=== PATIENT | male | born 1995 | race Caucasian/White ===

== ENCOUNTER 2023-10-06 00:55 | Emergency (ER) | payer OTHER, SELFPAY ==
--- NOTE | ~2023-10-06 | XR_ITS ---
EXAMINATION: XR chest 2V DATE: 10/06/2023 01:29 INDICATION: Chest injury. TECHNIQUE: Frontal and lateral views of the chest were obtained. COMPARISON: None. FINDINGS: There is no pneumonia, pleural effusion, or pneumothorax. The heart size is normal. IMPRESSION: 1. No acute cardiopulmonary disease. Reviewed, dictated and finalized at location A.
[2023-10-06 00:59] VITALS: BP 135/69; PULSE 88; RESP 20; TEMP 36.3; O2SAT 100
[2023-10-06 01:13] VITALS: BP 158/88; PULSE 70; PULSE 71; RESP 14; RESP 19; O2SAT 99
[2023-10-06 01:15] VITALS: PULSE 75; RESP 14; O2SAT 99
--- NOTE | 2023-10-06 01:16 | ECG_ITS ---
Test Date: 2023-10-06 01:30:00 Measurements Intervals [place] Rate: 62 P: 40 AK: 136 QRS: 7 QRSD: 96 T: 14 QT: 385 QTc: 393 Interpretive Statements SINUS RHYTHM No previous ECG available for comparison Electronically Signed On 10-07-2023 13:31:05 CDT by Amadeo Angeles M.D.
--- NOTE | 2023-10-06 01:29 | ED.FALL ---
HPI - Fall General Chief Complaint: Fall Stated Complaint: Fall 2 days ago, right chest pain Time Seen by Provider: 10/06/23 01:13 History of Present Illness HPI Narrative: patient fell about 2 days ago when he was on muscle relaxants and tripped in the shower and landed on toilet chest 1st, he did have some bruising to his chest, pain especially with deep breaths. Related Data Allergies Allergy/AdvReac Type Severity Reaction Status Date / Time No Known Allergies Allergy Verified 10/06/23 00:56 Review of Systems Review of Systems: All systems reviewed & are unremarkable except as noted in HPI and below Exam Narrative: EXAMINATION OF ORGAN SYSTEMS/BODY AREAS: Constitutional: Vital signs per nursing GENERAL:[No acute distress, non-toxic appearing.] HEAD: Normal with no signs of head trauma. EYES: EOMI, conjunctiva normal ENT: Hearing grossly intact LUNGS: Nonlabored breathing. clear to auscultation bilaterally HEART: [Regular rate and rhythm], some slight tenderness to palpation to the chest with bruising ABD: [Soft], [nontender to palpation] EXT: Normal range of motion SKIN: Bruising to anterior chest NEURO: [Alert and oriented x 3. No gross focal sensory or strength deficits.] PSYCH: Normal affect Course Vital Signs Vital signs: Vital Signs Temperature 97.3 F L 10/06/23 00:59 Pulse Rate 88 10/06/23 00:59 Respiratory Rate 20 10/06/23 00:59 Blood Pressure 135/69 10/06/23 00:59 Pulse Oximetry 100 10/06/23 00:59 Oxygen Delivery Room Air 10/06/23 00:59 Temperature 97.3 F L 10/06/23 00:59 Pulse Rate 71 10/06/23 01:13 Respiratory Rate 19 10/06/23 01:13 Blood Pressure 158/88 H 10/06/23 01:13 Pulse Oximetry 99 10/06/23 01:13 Oxygen Delivery Room Air 10/06/23 00:59 MDM - Fall MDM Narrative Medical decision making narrative: patient presenting here with chest trauma 2 days ago, he does have bruising to his chest and some tenderness, clear bilateral breath sounds, wanted make sure he didn't puncture lung. X-ray obtained, and on my independent interpretation no obvious rib fractures, no obvious pneumothorax. EKG interpreted by myself independently, shows sinus rhythm 62, HI 136, QRS 96, QTc nl, normal axis, no ST elevations or depressions, no signs of acute ischemia or pain. Patient given pain medication and I do feel stable for discharge with return precautions and follow-up instructions to PCP Discharge Plan Discharge Clinical Impression: Chest wall contusion Patient Disposition: Home, Self-Care Condition: Stable Instructions: Antibiotic Form, Contusion in Adults (ED) Additional Instructions: You can take pain medication and use ice for the next day or 2, you can return to the emergency room for any further issues. Follow-up/Referrals: PHYSICIAN NOT ON STAFF,NONSTAFF [Non-Staff] - Ramón Estrada MD [Physician] - 2 Days
[2023-10-06] MEDS: LIDOCAINE 5% PATCH 1 PATCH TRANSDERM (01:33)
[2023-10-06] MEDS: oxyCODONE/ACETAMINOPHEN (*CRX) 5-325 MG TABLET 1 TABLET PO (01:33)
== END 2023-10-06 01:45 | disposition home or self-care (01) ==
PROVIDERS: Emergency Provider Emergency Medicine
DX: S20.219A Contusion of unspecified front wall of thorax, initial encounter (principal); W18.2XXA Fall in (into) shower or empty bathtub, initial encounter
CPT/HCPCS: 71046; 93005; 99283; A9270

== ENCOUNTER 2023-12-24 03:39 | Emergency (ER) | payer OTHER, SELFPAY ==
--- NOTE | ~2023-12-24 | XR_ITS ---
Portable chest x-ray Comparison: 10/06/2023 Clinical History: Chest pain Findings: Lungs are clear, without focal consolidation or pleural effusion. Cardiomediastinal silho uette is stable. Bones and soft tissues are unremarkable. Impression: Normal chest. Reviewed, dictated and finalized at [facility]. Impression: Normal chest.
[2023-12-24 03:45] VITALS: BP 157/91; PULSE 77; RESP 14; TEMP 36.5; O2SAT 99
[2023-12-24 03:54] VITALS: BP 144/93; PULSE 92; RESP 23; TEMP 36.6; O2SAT 97
[2023-12-24 03:58] VITALS: RESP 12; O2SAT 96
--- NOTE | 2023-12-24 04:27 | ED.GENADULT ---
HPI - General Adult General Chief complaint: Recheck/Abnormal Lab/Rx Stated complaint: abusing my medication - taking too much Time Seen by Provider: 12/24/23 04:18 Source: patient and other ( Girlfriend) Mode of arrival: ambulatory Limitations: no limitations History of Present Illness HPI narrative: patient presents that he is abusing/ misusing his medications. He is prescribed 10 mg Adderall but notes that there are some days when he takes 50-60 mg. He has also been drinking more heavily than normal. He drinks daily. He previously drank liquor but he is changed to beer. He notes that he is trying to cut down. 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 Because this makes him more alert, he then has difficulty sleeping that is why he has been drinking more alcohol. He denies any intentional self-harm or suicidal ideation. patient and his girlfriend mention several times they are concerned that he has diabetes. This is b/c When he had surgery in August he had been told that he had high blood sugar. Today he states that he felt flushed and he vomited he was having chest pain described as a tightness and during this episode he couldn't see straight . In general, he has had bilateral leg pain in his thighs and, to a lesser degree, in his calves. Also has been having confusion. He has a history of anxiety attacks and thinks that some of his current symptoms are combination that as well as the medication. patient states that he does not take Adderall every day, mainly only when he works. He has also been having difficulty having a bowel movement, feeling like he needs to go but not going and then feeling unwell did constipation. When he does have a bowel movement, because it is larger or firmer, he then has pain while defecating. Patient believes he is trying to titrate uppers and downers to meet his activity demands. patient states he has been vomiting attempts to eat or drink. He is drinking daily trying to cut down. Police he is withdrawn before but without significant complications such as delirium tremens or seizure. Does not believe he is withdrawing now. 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 HEAD: Normocephalic, atraumatic. EYES: Non injected, non icteric ENT: Nares clear, no rhinorrhea or epistaxis. Tongue protrudes midline without deviation or fasciculation. NECK: Supple. CHEST: Speaking in full sentences. No respiratory distress. HEART: Regular rate and rhythm. . ABDOMEN: Soft, nondistended. EXTREMITIES: Normal range of motion. No lower extremity edema. Compartments in bilateral legs soft. No tenderness to palpation of calves or thighs. SKIN: Warm, dry, no rash. NEURO: No focal deficits. Alert and oriented x3. not tremulous. No abnormal movements appreciated. Speaks clearly without aphasia or dysarthria. Moves all extremities. PSYCH: Normal mood and affect. Appearance: Well kempt. Behavior: Calm, good eye contact, in no acute distress. Affect: pleasant. Mood is congruent with affect. Speech: Appropriate rate, quantity and volume. Thought process: Linear. Denies SI. does not appear to be responding to internal stimuli. Cognition: Normal. Insight: Good. Judgment: Poor. Course Vital Signs Vital signs: Vital Signs Temperature 97.7 F 12/24/23 03:45 Pulse Rate 77 12/24/23 03:45 Respiratory Rate 14 12/24/23 03:45 Blood Pressure 157/91 H 12/24/23 03:45 Pulse Oximetry 99 12/24/23 03:45 Temperature 98 F 12/24/23 05:24 Pulse Rate 77 12/24/23 05:24 Respiratory Rate 14 12/24/23 05:24 Blood Pressure 116/92 H 12/24/23 05:24 Pulse Oximetry 97 12/24/23 05:24 Medical Decision Making [facility] Narrative Medical decision making narrative: patient presents with concern that he is appropriately taking the Adderall that this prescribed to him. In addition he notes that he drinking alcohol heavily. He does the former because of shift work in which he has had longer shifts due to increased inventory. Because he is taking of his Adderall than prescribed, he has difficulty sleeping this reason he has been drinking more alcohol in attempt to help him sleep. In the emergency department he is afebrile with vital signs notable for hypertension. Patient is very concerned he has diabetes ; normal HA1C. Rest of workup generally unremarkable. Discussed sleep hygiene and stressed the importance of taking medications as prescribed and attempting to reduce/cease alcohol consumption. patient discharged stable condition. Unknown if he has a primary care physician so /contact information is provided for 1. Differential Diagnosis Differential Diagnosis: Inappropriate use/ abuse prescribed amphetamine medication, alcohol abuse, considered withdrawal, rhabdomyolysis, electrolyte abnormalities, hyperglycemia, hypoglycemia, symptomatic anemia; acute kidney injury/ insufficiency; liver injury/transaminitis; manic episode/ wallace/bipolar disorder Vital Signs Vital Signs: Vital Signs Temperature 97.7 F 12/24/23 03:45 Pulse Rate 77 12/24/23 03:45 Respiratory Rate 14 12/24/23 03:45 Blood Pressure 157/91 H 12/24/23 03:45 Pulse Oximetry 99 12/24/23 03:45 Temperature 98 F 12/24/23 05:24 Pulse Rate 77 12/24/23 05:24 Respiratory Rate 14 12/24/23 05:24 Blood Pressure 116/92 H 12/24/23 05:24 Pulse Oximetry 97 12/24/23 05:24 Lab Data Lab results reviewed: Yes I reviewed the patient's lab results. Lab results narrative: Trace ketonuria leukopenia with no prior for comparison 12/24/23 04:48 12/24/23 04:48 Labs: Lab Results 12/24/23 12/24/23 Range/Units 04:48 05:57 WBC 3.8 L (4.5-10.0) K/mm3 RBC 4.77 (4.6-6.20) M/mm3 Hgb 15.3 (14.0-18.0) g/dL Hct 43.8 (42.0-52.0) % MCV 91.8 (80-100) fl MCH 32.1 (26-34) pg MCHC 34.9 (32-36) g/dl RDW 12.3 (11.5-14.5) % Plt Count 212 (150-375) k/mm3 MPV 10.8 H (7.4-10.4) fl Immature Gran % (Auto) 0.3 (0-0.5) % Neut % (Auto) 54.7 (45.5-73.1) % Lymph % (Auto) 30.7 (18.3-44.2) % [place] % (Auto) 10.3 H (2.6-8.5) % Eos % (Auto) 3.2 (0-4.4) % Baso % (Auto) 0.8 (0.2-1.2) % Lymph # (Auto) 1.16 (0.9-3.2) K/mm3 [place] # (Auto) 0.4 (0.1-0.6) K/mm3 Eos # (Auto) 0.1 (0-0.3) K/mm3 Baso # (Auto) 0.0 (0.0-0.1) K/mm3 Abs Immat Gran (auto) 0.01 (0.00-0.031) K/mm3 Absolute Neuts (auto) 2.1 (1.3-6.7) K/mm3 Absolute Nucleated RBC 0.000 (0.0-0.012) K/mm3 Nucleated RBC % 0.0 (0.0-0.2) % Sodium 140 (137-145) mmol/L Potassium 4.3 (3.4-5.0) mmol/L Chloride 105 (98-107) mmol/L Carbon Dioxide 27 (22-30) mmol/L Anion Gap 8 (4-12) mmol/L BUN 9 (9-20) mg/dL Creatinine 0.80 (0.7-1.3) mg/dL Estim Creat Clear Calc 107 ml/min Estimated GFR > 60 (59 - ) Glucose 105 (65-110) mg/dL Hemoglobin A1c 5.2 (<5.7) % Calcium 8.9 (8.4-10.2) mg/dL Magnesium 2.2 (1.6-2.3) mg/dL Total Bilirubin 0.5 (0.2-1.3) mg/dL AST 36 (17-59) U/L ALT 28 (6-50) U/L Alkaline Phosphatase 58 (38-126) U/L Total Creatine Kinase 94 (55-170) U/L Total Protein 8.0 (6.3-8.2) g/dL Albumin 4.5 (3.5-5.1) g/dL Urine Color Yellow (Yellow) Urine Appearance Clear (Clear) Urine pH 7.5 (5.0-9.0) Ur Specific [place] 1.018 (1.001-1.035) Urine Protein Negative (Negative) mg/dL Urine Glucose (UA) Negative (Negative) mg/dL Urine Ketones Trace H (Negative) mg/dL Ur Blood (Man) Negative (Negative) Urine Nitrate Negative (Negative) Urine Bilirubin Negative (Negative) Urine Urobilinogen 1.0 (<2.0) mg/dL Leukocyte Esterase Rfl Negative (Negative) KAYLA/UL Ethyl Alcohol < 10 (<10) mg/dL Imaging Data Attestation: I personally reviewed and interpreted this imaging study as follows: My impression: Normal chest x-ray with no acute intrathoracic process per my independent interpretation ECG Data EKG #1: Attestation: I personally reviewed and interpreted this ECG as follows: ECG completion date: 12/24/23 ECG completion time: 04:55 Interpretation: normal sinus rhythm at a rate of 74 beats per minute. WI interval 136. QRS 92. QT/ QTC 362/389. Good R-wave progression across the precordial leads. T-wave inversion isolated to lead 3 but otherwise upright in normal in contiguous inferior leads 2 and AVF. No other T-wave inversions. Normal ECG. Discharge Plan Discharge Clinical Impression: Drug abuse, amphetamine type, Alcohol abuse, Chest pain not due to acute coronary syndrome, Leukopenia, Ketonuria, Leg pain, bilateral Patient Disposition: Home, Self-Care Condition: Stable Instructions: Antibiotic Form, Chest Pain (DC), Abuse of Alcohol (DC), At-Risk Alcohol Use (ED), Insomnia (ED), Leg Pain (ED), Alcohol Dependence (ED) Additional Instructions: Your labs were generally reassuring: no electrolyte abnormalities or evidence of exaggerated muscle breakdown in the tissues. You had a normal hemoglobin A1C which means you do not have diabetes. Taking more than your prescribed adderal is dangerous especially when combined with energy drinks as it could cause a problem with the electrical activity of your heart (though luckily fine today based on the chest xray and EKG). your symptoms are explained by the excessive use of your prescribed Adderall medication and abuse of alcohol. it is very important that you take your medication as prescribed and aim to reduce your alcohol consumption or trial stopping. follow-up with a primary care physician. If you do not have 1 the name of the doctor is listed below. Return to the emergency department with any new or worsening symptoms. Prescriptions: No Action lidocaine 5 % adhesive patch,medicated 1 patch topical DAILY Qty: 15 0RF Rx Instructions: leave on most painful area for up to 12 hrs Follow-up/Referrals: Oumar Dill MD [Physician] - ( Family practice) PHYSICIAN NOT ON STAFF,NONSTAFF [Primary Care Provider] - Stand Alone Forms: Work/School Release IP Time of Disposition: 06:33
--- NOTE | 2023-12-24 04:40 | ECG_ITS ---
Test Date: 2023-12-24 04:55:09 Measurements Intervals [place] Rate: 74 P: 56 HI: 136 QRS: -7 QRSD: 92 T: 1 QT: 362 QTc: 402 Interpretive Statements SINUS RHYTHM Compared to ECG 10/06/2023 01:30:00 No significant changes Electronically Signed On 12-24-2023 11:00:04 CDT by David Licea M.D.
[2023-12-24 04:55] LABS: Basophils Percent Auto 0.8 % (0.2-1.2); Eosinophils Absolute Auto 0.1 K/mm3 (0-0.3); Eosinophils Percent Auto 3.2 % (0-4.4); Hematocrit 43.8 % (42.0-52.0); Hemoglobin 15.3 g/dL (14.0-18.0); Immature Granulocyte Absolute 0.01 K/mm3 (0.00-0.031); Immature Granulocyte Percent A 0.3 % (0-0.5); Lymphocytes Absolute Auto 1.16 K/mm3 (0.9-3.2); Lymphocytes Percent Auto 30.7 % (18.3-44.2); Mean Corpuscular HGB Conc 34.9 g/dl (32-36); Mean Corpuscular Hemoglobin 32.1 pg (26-34); Mean Corpuscular Volume 91.8 fl (80-100); Mean Platelet Volume 10.8 fl (7.4-10.4); Monocytes Absolute Auto 0.4 K/mm3 (0.1-0.6); Monocytes Percent Auto 10.3 % (2.6-8.5); Neutrophils Absolute Auto 2.1 K/mm3 (1.3-6.7); Neutrophils Percent Auto 54.7 % (45.5-73.1); Platelet Count Result 212 k/mm3 (150-375); Red Blood Count 4.77 M/mm3 (4.6-6.20); Red Cell Distribution Width 12.3 % (11.5-14.5); White Blood Count 3.8 K/mm3 (4.5-10.0)
[2023-12-24 05:10] LABS: Hemoglobin A1C 5.2 % (<5.7)
[2023-12-24 05:13] LABS: Ethanol < 10 mg/dL (<10)
[2023-12-24 05:14] LABS: Alanine Aminotransferase 28 U/L (6-50); Albumin Level 4.5 g/dL (3.5-5.1); Alkaline Phosphatase 58 U/L (38-126); Anion Gap 8 mmol/L (4-12); Aspartate Amino Transferase 36 U/L (17-59); Bilirubin,Total 0.5 mg/dL (0.2-1.3); Blood Urea Nitrogen 9 mg/dL (9-20); Calcium 8.9 mg/dL (8.4-10.2); Carbon Dioxide 27 mmol/L (22-30); Chloride 105 mmol/L (98-107); Estimated CRCL calculation 107 ml/min; Estimated Glomerular Filt Rate > 60; Glucose 105 mg/dL (65-110); Magnesium 2.2 mg/dL (1.6-2.3); Potassium 4.3 mmol/L (3.4-5.0); Sodium 140 mmol/L (137-145)
[2023-12-24 05:24] VITALS: BP 116/92; PULSE 77; RESP 14; TEMP 36.6; O2SAT 97
[2023-12-24 05:28] LABS: Creatine Kinase 94 U/L (55-170)
[2023-12-24 06:08] LABS: Add Urine Microscopic? NO; Appearance Urine Clear (Clear); Bilirubin Urine Negative (Negative); Blood Urine Negative (Negative); Color Urine Yellow (Yellow); Glucose Urine UA Negative (Negative); Ketones Urine Trace mg/dL (Negative); Leukocyte Esterase Ur Negative LEU/UL (Negative); Nitrate Urine Negative (Negative); Protein Urine Negative (Negative); Specific Grav Ur 1.018 (1.001-1.035); pH Urine 7.5 (5.0-9.0)
== END 2023-12-24 06:44 | disposition home or self-care (01) ==
PROVIDERS: Emergency Provider Student in an Organized Health Care Education/Training Program
DX: F15.10 Other stimulant abuse, uncomplicated (principal); F10.10 Alcohol abuse, uncomplicated; R07.9 Chest pain, unspecified; D72.819 Decreased white blood cell count, unspecified; R82.4 Acetonuria; M79.662 Pain in left lower leg; M79.661 Pain in right lower leg
CPT/HCPCS: 36415; 71045; 80053; 81003; 82077; 82550; 83036; 83735; 85025; 93005; 99284

== ENCOUNTER 2024-11-12 08:43 | Emergency (ER) | payer OTHER, SELFPAY ==
--- NOTE | ~2024-11-12 | CT_ITS ---
Munir Hanna EXAMINATION: CT abdomen pelvis w con COMPARISON: None HISTORY: Bilateral lower abdomen pain TECHNIQUE: Axial images were obtained through the abdomen, pelvis post administration of IV contrast. Oral contrast was also administered. Coronal reconstruction images were obtained from the axial views. CT scan performed using dose optimization techniques including the following automated exposure control; adjustment of mA and/or kV; use of iterative reconstruction technique. Automatic exposure control was used to reduce radiation dose. Permanent radiation dose record is archived to PACS. FINDINGS: CT abdomen: LUNG BASES: The lung bases are clear. The visualized portions of the heart and pericardium are unremarkable. LIVER: Portal vein patent. No intrahepatic biliary duct dilatation. SPLEEN: Unremarkable. KIDNEYS: Right Kidney: Unremarkable. No calculi. No hydronephrosis. Left Kidney: Unremarkable. No calculi. No hydronephrosis ADRENAL GLANDS: Unremarkable. PANCREAS: Unremarkable. GALLBLADDER/BILIARY: Gallbladder contracted. STOMACH AND ESOPHAGUS: Visualized stomach and esophagus within normal limits. BOWEL/MESENTERY: Moderate fecal content, no colitis or diverticulitis. Appendix normal. Mesentery normal. No dilated small bowel loops. ADENOPATHY/RETROPERITONEUM: No lymphadenopathy. AORTA/VASCULATURE: Normal caliber aorta. FREE FLUID OR FREE AIR: No free fluid.. CT pelvis: SOLID ORGANS/REPRODUCTIVE: The prostate is enlarged, correlate with PSA. BLADDER: Within normal limits. OSSEOUS STRUCTURES: No acute osseous abnormality.No suspicious lesions. OVERLYING SOFT TISSUES: Unremarkable. IMPRESSION: 1. No acute intra-abdominal process Reviewed, dictated and finalized at location A.
--- OUTSIDE RECORDS SUMMARY | 2024-11-12 08:30 | XMS_ITS | Encounter Summary ---
Author Organization [facility] Healthcare Address [address] [place] [address] Care Team Providers Care Utilization Management Manager Name Role Phone Kyle Cole MD Primary Care Provider Reason for Visit * Reason Comments Diarrhea Vomiting, abdominal pain. Gas build up Encounter Details Date Type Department Care Team (Late st Contact Info) Description 11/12/2024 8:30 AM CDT Office Visit [facility] Medical [facility] Care at [address] [address] Wil Magaña, YOGESH [address] [facility] [address] [place] [address] Abdominal pain, vomiting, and diarrhea (Primary Dx); Generalized abdominal tenderness without rebound tenderness Social History Tobacco Use Types Packs/Day Years Used Date Smoking Tobacco: Some Days Cigarettes Vaping Smokeless Tobacco: Never Sex and Gender Information Value Date Recorded Sex Assigned at Not on file Legal Sex Male 10:08 PM CDT Gender Identity Not on file Sexual Orientation Not on file documented as of this encounter Last Filed Vital Signs Vital Sign Reading Time Taken Comments Blood Pressure 132/85 11/12/2024 8:15 AM CDT Pulse 75 11/12/2024 8:15 AM CDT Temperature 36.8 C (98.3 F) 11/12/2024 8:15 AM CDT Respiratory Rate 18 11/12/2024 8:15 AM CDT Oxygen Saturation 98% 11/12/2024 8:15 AM CDT Inhaled Oxygen Concentration - - Weight 71.7 kg (158 lb) 11/12/2024 8:15 AM CDT Height - - Body Mass Index 24.75 10/16/2024 10:07 AM CDT documented in this encounter Progress Notes * Wil Magaña NP - 11/12/2024 8:30 AM CDT Images from the original note were not included. Subjective/Objective Patient ID: Munir Hanna is a 28 y.o. male. This patient has verbally consented to recording this visit in order to utilize AI technology in generating this note. Chief Complaint Diarrhea (Vomiting, abdominal pain. Gas build up//) History of Present Illness Munir Hanna is a 28 year old male with a history of stomach issues who presents with abdominal pain,vomiting, and diarrhea. Patient here with today. He experiences worsening abdominal pain, vomiting, and diarrhea over the past couple of days. The abdominal pain feels like a 'gassy buildup' and worsens with bending over. Symptoms began on Sunday night, leading to missed work due to vomiting episodes. He has a history of stomach issues, including ulcers, but this episode is more severe. Diarrhea occurs more than ten times in 24 hours, without blood or mucus. He feels unusually hot despite a cool apartment but denies fever, chills, or sweats. He sleeps for extended periods with melatonin but wakes frequently to use the restroom. No urinary symptoms such as burning, urgency, or frequency. Increased urination is due to high fluid intake, including electrolyte drinks. No bruising or rash is noted, and he kept down a small granola bar this morning. Review of Systems All other systems reviewed and are negative. Physical Exam ABDOMEN: Tenderness on the right side of the abdomen. Physical Exam Vitals and nursing note reviewed. Constitutional: General: He is not in acute distress. Appearance: Normal appearance. He is not ill-appearing. Cardiovascular: Rate and Rhythm: Normal rate and regular rhythm. Pulmonary: Effort: Pulmonary effort is normal. Breath sounds: Normal breath sounds. Abdominal: General: Abdomen is flat. Bowel sounds are decreased. Palpations: Abdomen is soft. Tenderness: There is abdominal tenderness in the right upper quadrant, right lower quadrant, left upper quadrant and left lower quadrant. There is no guarding. Comments: Patient most tender on right upper and right lower quadrant Skin: General: Skin is warm and dry. Capillary Refill: Capillary refill takes less than 2 seconds. Findings: No bruising, erythema or rash. Neurological: Mental Status: He is alert and oriented to person, place, and time. Gait: Gait normal. Vitals: 11/12/24 0815 BP: 132/85 Pulse: 75 Resp: 18 Temp: 36.8 ??C (98.3 ??F) TempSrc: Continuous Temporal Temperature SpO2: 98% Weight: 71.7 kg (158 lb) No results found. No past medical history on file. Current Outpatient Medications: hydrOXYzine (VISTARIL) 25 mg capsule, Take 1-2 capsules (25-50 mg total) by mouth 3 (three) times aday as needed, Disp: , Rfl: valACYclovir (VALTREX) 500 mg tablet, Take 1 tablet (500 mg total) by mouth daily, Disp: , Rfl: azithromycin (ZITHROMAX) 250 mg tablet, Take 2 tablets the first day, then 1 tablet daily for 4 days (Patient not taking: Reported on 11/12/2024), Disp: 6 tablet, Rfl: 0 benzonatate (TESSALON) 200 mg capsule, Take 1 capsule (200 mg total) by mouth 3 (three) times a dayas needed for cough (Patient not taking: Reported on 11/12/2024), Disp: 42 capsule, Rfl: 0 dextroamphetamine-amphetamine (ADDERALL) 10 mg tablet, Take 1 tablet (10 mg total) by mouth daily (Patient not taking: Reported on 11/12/2024), Disp: , Rfl: fluticasone propionate (FLONASE) 50 mcg/actuation nasal spray, Administer 2 sprays into each nostril daily (Patient not taking: Reported on 11/12/2024), Disp: 1 each, Rfl: 0 ranitidine (ZANTAC) 150 mg capsule, Take 1 capsule (150 mg total) by mouth every evening (Patient not taking: Reported on 11/12/2024), Disp: 30 capsule, Rfl: 0 No Known Allergies Social History Tobacco Use Smoking status: Some Days Types: Cigarettes, Vaping Smokeless tobacco: Never Substance and Sexual Activity Drug use: Not on file Sexual activity: Not on file Alcohol Use: Not on file No past surgical history on file. Procedures Assessment/Plan 1. Abdominal pain, vomiting, and diarrhea (Primary) 2. Generalized abdominal tenderness without rebound tenderness Results Assessment & Plan Acute right lower quadrant abdominal pain with nausea, vomiting, and diarrhea; rule out acute abdominal infection (appendicitis, cholecystitis, or colitis) Differential includes appendicitis, cholecystitis, or colitis. Tenderness suggests possible acute abdominal infection requiring further evaluation. - Refer to emergency room for likely imaging and blood work to evaluate for acute abdominal infection. - Patient's to take him directly to emergency room for further evaluation Disposition Treatment plan including expectations, follow up, and return precautions discussed with patient/parent, verbalizes understanding. Medication dosage, use, and potential adverse reactions discussed with patient/parent. Advised to follow up with PCP if symptoms do not resolve as expected or sooner if condition worsens. Signs/symptoms warranting ER evaluation reviewed. Patient and/or guardian was given an opportunity to ask questions, questions answered. Wil Magaña NP This office note has been partially dictated using [employer] software, and as a result portions of the record may have been created with this software. Occasional wrong-word or '[id number]' substitutions may have occurred due to the inherent limitations of voice recognition software. Read the chartcarefully and recognize, using context, where substitutions have occurred. documented in this encounter Plan of Treatment Not on file documented as of this encounter Visit Diagnoses Diagnosis Abdominal pain, vomiting, and diarrhea- Primary Generalized abdominal tenderness without rebound tenderness documented in this encounter Care Teams Utilization Management Manager Relationship Specialty [place] [address] [facility] [place] [address] PCP - General 11/28/18 documented as of this encounter
--- OUTSIDE RECORDS SUMMARY | 2024-11-12 08:30 | XMS_ITS | Encounter Summary ---
Author Organization [facility] Healthcare Address [address] [place] [address] Care Team Providers Care Check Embosser Name Role Phone Kyle Cole MD Primary Care Provider Reason for Visit * Reason Comments Diarrhea Vomiting, abdominal pain. Gas build up Encounter Details Date Type Department Care Team (Late st Contact Info) Description 11/12/2024 8:30 AM CDT Office Visit [facility] Medical [facility] at [address] [address] Wil Magaña, YOGESH [address] [facility] [address] [place] [address] Abdominal pain, vomiting, and diarrhea [...] office note has been partially dictated using [employer] software, and as a result portions of the record may have been created with this software. Occasional wrong-word or '[id number]' substitutions may have occurred due to the inherent limitations of voice recognition software. Read the chartcarefully and recognize, using context, where substitutions have occurred. documented in this encounter Plan of Treatment Not on file documented as of this encounter Visit Diagnoses Diagnosis Abdominal pain, vomiting, and diarrhea- Primary Generalized abdominal tenderness without rebound tenderness documented in this encounter Care Teams Check Embosser Relationship Specialty [place] [id number] [address] [facility] [place] [address] PCP - General 11/28/18 documented as of this encounter
[2024-11-12 08:48] VITALS: BP 139/84; PULSE 74; RESP 18; TEMP 36.6; O2SAT 100
[2024-11-12 09:08] LABS: Hematocrit 48.3 % (42.0-52.0); Hemoglobin 16.2 g/dL (14.0-18.0); Immature Granulocyte Percent A 0.2 % (0-0.5); Lymphocytes Absolute Auto 1.49 K/mm3 (0.9-3.2); Mean Corpuscular HGB Conc 33.5 g/dl (32-36); Mean Corpuscular Hemoglobin 30.8 pg (26-34); Mean Corpuscular Volume 91.8 fl (80-100); Nucleated Red Blood Cells Absolute Auto 0.000 K/mm3 (0.0-0.012); Nucleated Red Blood Cells Perc 0.0 % (0.0-0.2); Platelet Count Result 232 k/mm3 (150-375); Red Blood Count 5.26 M/mm3 (4.6-6.20); White Blood Count 4.8 K/mm3 (4.5-10.0)
[2024-11-12 09:10] LABS: Add Urine Microscopic? NO; Appearance Urine Clear (Clear); Glucose Urine UA Negative (Negative); Leukocyte Esterase Ur Negative LEU/UL (Negative); Nitrate Urine Negative (Negative); Specific Grav Ur 1.021 (1.001-1.035)
--- NOTE | 2024-11-12 09:10 | ED_ITS ---
HPI - Abdominal Pain General Chief Complaint: Abdominal Pain Stated Complaint: abd pain Time Seen by Provider: 11/12/24 08:53 Source: patient Mode of arrival: ambulatory Limitations: no limitations History of Present Illness HPI narrative: Munir is a 28-year-old male patient presenting to the emergency room today with complaints of bilateral lower abdominal pain, nausea, vomiting, and diarrhea x3 days. He reports he felt feverish over the last few days. Rates his pain currently an 8/10-is sharp in nature. Worse with bending forward or raising up from a lying to a sitting position. Denies any blood in his stool. Last BM was diarrhea this morning. Also reports some discomfort when trying to initiate his urine stream-states it feels like it may be a little harder to void. Medical history of anxiety. Related Data Allergies Allergy/AdvReac Type Severity Reaction Status Date / Time No Known Allergies Allergy Verified 11/12/24 08:53 Review of Systems 2 Review of Systems: Pertinent positives per HPI. 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 There is no relevant family history pertinent to the patient complaint. Exam 2 Narrative: General: Well-developed, well nourished, in no apparent distress Head: Normocephalic, atraumatic Mouth: Oropharynx without lesions or masses, good dentition, MM dry. Cardio: Regular rate and rhythm, s1 and s2 normal, no murmur appreciated. Resp: Clear to auscultation bilaterally anteriorly and posteriorly, no rhonchi, rales, wheezing or rubs Abdomen: Soft, pliable, bowel sounds present in all quadrants, bilateral lower abdomen tender to palpation, negative obturator, negative psoas sign, negative rouvings, no organomegly, no CVAT tenderness. Course Course Emergency Course: Portions of this record may have been created with voice recognition software. Vital Signs Vital signs: Vital Signs Temperature 36.6 C 11/12/24 08:48 Pulse Rate 74 11/12/24 08:48 Respiratory Rate 18 11/12/24 08:48 Blood Pressure 139/84 11/12/24 08:48 Pulse Oximetry 100 11/12/24 08:48 Oxygen Delivery Room Air 11/12/24 08:48 Temperature 36.6 C 11/12/24 08:48 Pulse Rate 74 11/12/24 08:48 Respiratory Rate 18 11/12/24 08:48 Blood Pressure 139/84 11/12/24 08:48 Pulse Oximetry 100 11/12/24 08:48 Oxygen Delivery Room Air 11/12/24 08:48 Vital signs reviewed MDM - Abdominal Pain MDM Narrative Medical decision making narrative: At the time of visit patient is resting comfortably on the exam table. Patient appears to be nontoxic. Complaints of bilateral lower abdominal pain, nausea, vomiting, and diarrhea x3 days. He reports he felt feverish over the last few days. Rates his pain currently an 8/10-is sharp in nature. Worse with bending forward or raising up from a lying to a sitting position. Denies any blood in his stool. Last BM was diarrhea this morning. Also reports some discomfort when trying to initiate his urine stream-states it feels like it may be a little harder to void. Vital signs reviewed and stable to in the ER. Labs, CT abdomen pelvis with contrast, IV fluids, morphine, and Zofran were ordered. Labs: CBC, CMP, urinalysis are all unremarkable Diagnostics: CT abdomen/pelvis with contrast negative for any acute abdomen pathology. Medications: Morphine 2 mg IV, Zofran 4 mg IV, 1 L normal saline. Patient reports his pain has improved and he is feeling better Plan: Labs are unremarkable and his CT is negative for any acute abdomen pathology. I suspect patient likely has bilateral lower abdominal pain due to gastroenteritis. Prescription for Levsin and Zofran was sent to the pharmacy. Work note was given. Supportive measures were discussed with the patient and they voiced understanding discharge instructions and agrees to treatment plan. Return precautions reviewed Differential Diagnosis Differential diagnosis: Likely abdominal pain, acute appendicitis, constipation, diverticulitis, gastroenteritis, pancreatitis and other (Colitis) Lab Data 11/12/24 09:01 11/12/24 09:01 Labs: Lab Results 11/12/24 Range/Units 09:01 WBC 4.8 (4.5-10.0) K/mm3 RBC 5.26 (4.6-6.20) M/mm3 Hgb 16.2 (14.0-18.0) g/dL Hct 48.3 (42.0-52.0) % MCV 91.8 (80-100) fl MCH 30.8 (26-34) pg MCHC 33.5 (32-36) g/dl RDW 12.1 (11.5-14.5) % Plt Count 232 (150-375) k/mm3 MPV 10.8 H (7.4-10.4) fl Immature Gran % (Auto) 0.2 (0-0.5) % Neut % (Auto) 59.4 (45.5-73.1) % Lymph % (Auto) 31.0 (18.3-44.2) % [place] % (Auto) 6.7 (2.6-8.5) % Eos % (Auto) 1.7 (0-4.4) % Baso % (Auto) 1.0 (0.2-1.2) % Lymph # (Auto) 1.49 (0.9-3.2) K/mm3 [place] # (Auto) 0.3 (0.1-0.6) K/mm3 Eos # (Auto) 0.1 (0-0.3) K/mm3 Baso # (Auto) 0.1 (0.0-0.1) K/mm3 Abs Immat Gran (auto) 0.01 (0.00-0.031) K/mm3 Absolute Neuts (auto) 2.9 (1.3-6.7) K/mm3 Absolute Nucleated RBC 0.000 (0.0-0.012) K/mm3 Nucleated RBC % 0.0 (0.0-0.2) % Sodium 138 (137-145) mmol/L Potassium 3.9 (3.4-5.0) mmol/L Chloride 102 (98-107) mmol/L Carbon Dioxide 29 (22-30) mmol/L Anion Gap 7 (4-12) mmol/L BUN 12 (9-20) mg/dL Creatinine 0.94 (0.7-1.3) mg/dL Estim Creat Clear Calc 92 ml/min Estimated GFR > 60 (59 - ) Glucose 93 (65-110) mg/dL Calcium 9.6 (8.4-10.2) mg/dL Total Bilirubin 1.6 H (0.2-1.3) mg/dL AST 33 (17-59) U/L ALT 40 (6-50) U/L Alkaline Phosphatase 58 (38-126) U/L Total Protein 8.4 H (6.3-8.2) g/dL Albumin 4.9 (3.5-5.1) g/dL Urine Color Yellow (Yellow) Urine Appearance Clear (Clear) Urine pH 6.5 (5.0-9.0) Ur Specific [place] 1.021 (1.001-1.035) Urine Protein Negative (Negative) mg/dL Urine Glucose (UA) Negative (Negative) mg/dL Urine Ketones Negative (Negative) mg/dL Ur Blood (Man) Negative (Negative) Urine Nitrate Negative (Negative) Urine Bilirubin Negative (Negative) Urine Urobilinogen 1.0 (<2.0) mg/dL Leukocyte Esterase Rfl Negative (Negative) KAYLA/UL Imaging Data Radiologist's impression: ITS Impressions Abdomen/Pelvis CT 11/12/24 10:04 IMPRESSION: 1. No acute intra-abdominal process Discharge Plan Discharge Clinical Impression: Gastroenteritis, Abdominal pain, lower Patient Disposition: Home Condition: Stable Instructions: Antibiotic Form, Gastroenteritis (ED), Abdominal Pain (ED) Additional Instructions: Labs and urine normal in the ER CT abdomen normal in the ER today I suspect you have gastroenteritis/lower abdominal pain. Take medications as prescribed-ondansetron and Levsin BRAT diet for diarrhea Clear liquids x 24 hours then advance as tolerated for nausea/vomiting Return to the ED if you develop a worsening in your condition- high fever not controlled by Tylenol or Motrin, dehydration, weakness, lethargy, nausea/vomiting, abdominal pain, shortness of breath, or chest pain. Work note was given. Follow up with your PCP in 3-5 days if symptoms persist. Patient Language: Scottish Prescriptions: New hyoscyamine sulfate [Levsin] 0.125 mg tablet 0.125 mg PO QID PRN (Reason: dyspepsia) 3 Days Qty: 12 0RF ondansetron 4 mg tablet,disintegrating 4 mg PO Q6H PRN (Reason: nausea and vomiting) 3 Days Qty: 12 0RF No Action lidocaine 5 % adhesive patch,medicated 1 patch topical DAILY Qty: 15 0RF Rx Instructions: leave on most painful area for up to 12 hrs Follow-up/Referrals: PHYSICIAN NOT ON STAFF,NONSTAFF [Non-Staff] Stand Alone Forms: Work/School Release IP Time of Disposition: 10:36 Quality NIHSS Nursing Documentation ED NIHSS nursing documentation: reviewed/agree
--- OUTSIDE RECORDS SUMMARY | 2024-11-12 09:19 | XMS_ITS | Encounter Summary ---
Author Organization [facility] Address [address] [facility] Attn: [place] [address] Care Team Providers Care Inside Sales Advisor Name Role Phone Kyle Cole MD Primary Care Provider [phone] Encounter Details Date Type Department Care Team (Late st Contact Info) Description 1998 Outpatient Historical Lisha Scales MD [address] [place] [id number] Social History Tobacco Use Types Packs/Day Years Used Date Smoking Tobacco: Never Assessed Sex and Gender Information Value Date Recorded Sex Assigned at Not on file 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 Gender Identity Not on file Sexual Orientation Not on file documented as of this encounter Plan of Treatment Upcoming Encounters Date Type Department Care Team (Late st Contact Info) Description 11/28/2024 3:00 PM CDT Office Visit [facility] Primary [facility] [place] [id number] [place] [address] [place] [address] Velia Gray FNP [address] [place] [address] documented as of this encounter Visit Diagnoses Not on filedocumented in this encounter Care Teams Inside Sales Advisor Relationship Specialty [place] [address] [facility] [place] [phone] PCP - General Family Practice 07/07/15 documented as of this encounter
--- OUTSIDE RECORDS SUMMARY | 2024-11-12 09:19 | XMS_ITS | Encounter Summary ---
Author Organization [facility] Address [address] [place] [address] Care Team Providers Care Hot Man Name Role Phone Kyle Cole MD Primary Care Provider [phone] Encounter Details Date Type Department Care Team (Late st Contact Info) Description 04/09/2007 Outpatient Historical [facility] Irene Santana [facility] 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 Gender Identity Not on file Sexual Orientation Not on file documented as of this encounter Plan of Treatment Upcoming Encounters Date Type Department Care Team (Late Contact Info) Description 11/28/2024 3:00 PM CDT Office Visit [facility] Primary Care [address] [address] Velia Gray, ROD [id number] [place] [phone] documented as of this encounter Visit Diagnoses Not on filedocumented in this encounter Care Teams Hot Man Relationship Specialty [place] [address] [place] [phone] PCP - General Family Practice 07/07/15 documented as of this encounter
--- OUTSIDE RECORDS SUMMARY | 2024-11-12 09:19 | XMS_ITS | Encounter Summary ---
Author Organization [facility] Address [address] [facility] Attn: [place] [address] Care Team Providers Care [employer] Combination Teacher Name Role Phone Kyle Cole MD Primary Care Provider [phone] Encounter Details Date Type Department Care Team (Late st Contact Info) Description 05/15/2006 Outpatient Historical AttMarciano marshall MD [address] [address] Social History Tobacco Use Types Packs/Day Years Used Date Smoking Tobacco: Never Assessed Sex and Gender Information Value Date Recorded Sex Assigned at Not on file 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 Gender Identity Not on file Sexual Orientation Not on file documented as of this encounter Plan of Treatment Upcoming Encounters Date Type Department Care Team (Late st Contact Info) Description 11/28/2024 3:00 PM CDT Office Visit [facility] Primary Care [place] [id number] [place] [address] [place] [address] Velia Gray FNP [address] [facility] [address] documented as of this encounter Visit Diagnoses Not on filedocumented in this encounter Care Teams [employer] Combination Teacher Relationship Specialty [place] [address] [facility] [place] [phone] PCP - General Family Practice 07/07/15 documented as of this encounter
--- OUTSIDE RECORDS SUMMARY | 2024-11-12 09:19 | XMS_ITS | Clinical Summary ---
Author Organization [facility] Address [address] [place] [address] Care Team Providers Care Lance Crewmember Name Role Phone Kyle Verma MD Primary Care Provider Allergies No known active allergies Medications azithromycin (ZITHROMAX) 250 mg tablet Take 2 tablets the first day, then 1 tablet daily for 4 days 6 tablet 9 Active Additional Information Patient not taking.Reported on 11/12/2024 ranitidine (ZANTAC) 150 mg capsule Take 1 capsule (150 mg total) by mouth every evening 30 capsule 0 Active Additional Information Patient not taking.Reported on 11/12/2024 dextroamphetami ne-amphetamine (ADDERALL) 10 mg tablet Take 1 tablet (10 mg total) by mouth daily 2 Active hydrOXYzine (VISTARIL) 25 mg capsule Take 1-2 capsules (25-50 mg total) by mouth 3 (three) times a day as needed 2 Active valACYclovir (VALTREX) 500 mg tablet Take 1 tablet (500 mg total) by mouth daily Active benzonatate (TESSALON) 200 mg capsuleIndicati ons:Viral URI Take 1 capsule (200 mg total) by mouth 3 (three) times a day as needed for cough 42 capsule 4 Active Additional Information Patient not taking.Reported on 11/12/2024 fluticasone propionate (FLONASE) 50 mcg/actuation nasal sprayIndication s:Acute effusion of left ear Administer 2 sprays into each nostril daily 1 each 4 Active Additional Information Patient not taking.Reported on 11/12/2024 ofloxacin (FLOXIN) 0.3 % otic solutionIndicat ions:Acute suppurative otitis media of left ear with spontaneous rupture of tympanic membrane, recurrence not specified Administer 5 drops into the right ear 2 (two) times a day for 7 days 5 mL 5 10/24/19 25 amoxicillin (AMOXIL) 875 mg tabletIndicatio ns:Acute suppurative otitis media of left ear with spontaneous rupture of tympanic membrane, recurrence not specified Take 1 tablet (875 mg total) by mouth 2 (two) times a day for 10 days 20 tablet 5 10/27/19 25 Active Problems Problem Noted Date Diagnosed Date ADD (attention deficit disorder) 11/12/2024 Overview (11/12/2024): 07/07/2015 prev on adderall; abused? Didn't like how he felt on it. 03/05/2017 took adderall 10mg briefly fall 2016; holding off on refills.03/19/2019 defer any medications to Psychiatry 02/21/24: ABUSING ADDERALL / DR. VERMA's OFFICE NO LONGER FILLING> Cold sore 03/26/2024 Alcoholism 02/21/2024 Alcohol abuse 03/19/2019 Gastroesophageal reflux disease without esophagi tis 03/19/2019 Mood swings 03/19/2019 Herpes genitalis 06/03/2018 Vitamin B12 deficiency (non anemic) 02/04/2018 Chronic daily headache 02/01/2018 Acute low back pain without sciatica 03/05/2017 Anxiety 07/07/2015 Overview (11/12/2024): 04/02/2017 Stress/sleep, prn hydroxyzine. prozac to 40mg.Cocaine worsening. Rehab/psych 02/01/2018 on seroquel, hydroxyzine; from Psychiatry Dr. Piyush Muñoz MD. Sees Therapist Madyson Germain. 06/03/2018 Only on propranolol, has a new psychiatrist. 03/19/2019 hydroxyzine prn, ref Psychiatry Insomnia 07/07/2015 Moderate episode of recurrent major depressive d isorder 07/07/2015 Overview (11/12/2024): 07/07/2015 no active SI; start zoloft 50mg, f/u 1 mo (didn't). 11/18/15 - lexapro started. Stopped. effexor in fall 3 weeks, stopped. 03/05/2017 start prozac 20mg, prn hydroxyzine. Ref Psych also 04/02/2017 prozac inc to 40mg QD, ref Psych, rehab, addiction. +cocaine. 02/01/2018 on seroquel, hydroxyzine; from Psychiatry Dr. Piyush Muñoz MD. Sees Therapist Madyson Germain. 07/31/2018 stopped seeing therapist and psychiatrist. Stopped propranolol. Encounters Date Type Department Care Team Description 11/12/2024 8:30 AM CDT Office Visit [facility] at [address] [phone] Wil Magaña, YOGESH Abdominal pain, vomiting, and diarrhea (Primary Dx); Generalized abdominal tenderness without rebound tenderness 10/17/2024 Results Follow-Up [facility] at [place] [address] [address] [place] [phone] Sanjuana Rothman, YOGESH Throat culture Throat 10/17/2024 Telephone [facility] at [place] [address] [phone] Betsy Romo MA 10/16/2024 10:28 AM CDT - 10/16/2024 11:59 PM CDT Hospital Encounter [address] [address] Sore throat Discharge Disposition: Discharge to home or self care 10/16/2024 10:00 AM CDT Office Visit [facility] at [place] [address] [address] [place] [phone] Sanjuana Rothman, YOGESH Sore throat (Primary Dx); Cough, unspecified type; Acute suppurative otitis media of left ear with spontaneous rupture of tympanic membrane, recurrence not specified 08/16/2024 9:00 AM CDT Office Visit [facility] [place] [address] [place] [address] Rachana Baker NP Nausea vomiting and diarrhea (Primary Dx) from Last 3 Months Social History Tobacco Use Types Packs/Day Years Used Date Smoking Tobacco: Some Days Cigarettes Vaping Smokeless Tobacco: Never Sex and Gender Information Value Date Recorded Sex Assigned at Not on file Legal Sex Male 10:08 PM CDT Gender Identity Not on file Sexual Orientation Not on file Obstetrics History Last Filed Vital Signs Vital Sign Reading Time Taken Comments Blood Pressure 132/85 11/12/2024 8:15 AM CDT Pulse 75 11/12/2024 8:15 AM CDT Temperature 36.8 C (98.3 F) 11/12/2024 8:15 AM CDT Respiratory Rate 18 11/12/2024 8:15 AM CDT Oxygen Saturation 98% 11/12/2024 8:15 AM CDT Inhaled Oxygen Concentration - - Weight 71.7 kg (158 lb) 11/12/2024 8:15 AM CDT Height 170.2 cm (5' 7) 10/16/2024 10:07 AM CDT Body Mass Index 24.75 10/16/2024 10:07 AM CDT Plan of Treatment Health Maintenance Due Date Last Done Comments Depression Screening 1994 Hepatitis C Screening 1994 Varicella Vaccines (1 of 2 - 13+ 2-dose series) 11/20/2007 Regular Well Visit/Exam 18-64 2012 HPV Vaccines (3 - Male 3-dos e series) 08/13/2013 05/21/2013, 06/19/2012 Pneumococcal vaccine <65 (1 of 2 - PCV) 2013 DTaP/Tdap/Td Vaccine (7 - Td or Tdap) 05/22/2023 05/21/2013, 06/07/2006, 12/07/1999, Additional history exists Covid-19 Vaccine ( - 2024-2 6 season) 2024 05/16/2021, 07/06/2020, 06/04/2020 Influenza Vaccine (#1) 2024 , 01/30/2019, 03/05/2017, Additional history exists Hepatitis B Screening Completed 12/08/1996 , 05/28/1996, 03/06/1996 Procedures Procedure Name Priority Date/Time Associated Diagnosis Comments THROAT CULTURE Routine 10/16/2024 10:28 AM CDT Sore throat POC INFLUENZA A/B, COVID-19 ANTIGEN Routine 10/16/2024 10:23 AM CDT Cough, unspecified type POCT RAPID STREP Routine 10/16/2024 10:2 3 AM CDT Sore throat Cough, unspecified type from Last 3 Months Results * Throat culture Throat (10/16/2024 10:28 AM CDT) Report Final Report: No growth of pathogens. Comment:Testing performed by : [facility], [address] [place]., [address] Throat 10/16/2024 10:2 8 AM CDT 10/16/2024 4:12 PM CDT Narrative ZACHERY Bowie 10/17/2024 12:47 PM CDT Testing performed by [facility] ([phone]). Sanjuana Rothman NP LAB MICROBIOLOGY - GENERAL ORDERABLES Final Result [facility] [address] [address] Department [place] [address] * POC Influenza A/B, COVID-19 antigen (10/16/2024 10:23 AM CDT) Influenza A Ag, POC Negative Negative [facility] Influenza B Ag, POC Negative Negative [facility] COVID-19 Ag POC Presumptive Negative Presumptive Negative, Invalid [facility] Nasal 10/16/2024 10:2 3 AM CDT Sanjuana Rothman NP POINT OF CARE TEST ORDERABL ES Final Result [facility] [address] [place] [address], [facility] * POCT rapid strep A (10/16/2024 10:23 AM CDT) Rapid Strep A, POC Negative Negative Swab 10/16/2024 10:2 3 AM CDT Sanjuana Rothman NP POINT OF CARE TEST ORDERABL ES Final Result from Last 3 Months Insurance [facility] Care Teams Lance Crewmember Relationship Specialty [place] [address] [place] [address] PCP - General 11/28/18
--- OUTSIDE RECORDS SUMMARY | 2024-11-12 09:19 | XMS_ITS | Encounter Summary ---
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 Gender Identity Not on file Sexual Orientation Not on file documented as of this encounter Plan of Treatment Upcoming Encounters Date Type Department Care Team (Late st Contact Info) Description 11/28/2024 3:00 PM CDT Office Visit [facility] Primary Care [place] [address] [place] [address] [place] [address] Velia Gray FNP [address] [place] [address] documented as of this encounter Visit Diagnoses Not on filedocumented in this encounter Care Teams Bonus Clerk Relationship Specialty [place] [address] [facility] [place] [phone] PCP - General Family Practice 07/07/15 documented as of this encounter
--- OUTSIDE RECORDS SUMMARY | 2024-11-12 09:19 | XMS_ITS | Encounter Summary ---
Author Organization [facility] Address [address] [place] [address] Care Team Providers Care Elevator Repairer Name Role Phone Kyle Cole MD Primary Care Provider Encounter Details Date Type Department Care Team (Late st Contact Info) Description 10/17/2024 Results Follow-Up [facility] at [address] [place] [phone] Sanjuana Rothman, YOGESH [address] [facility] [place] [address] Throat culture Throat Social History Tobacco Use Types Packs/Day Years Used Date Smoking Tobacco: Some Days Cigarettes Vaping Smokeless Tobacco: Never Sex and Gender Information Value Date Recorded Sex Assigned at Not on file Legal Sex Male 10:08 PM CDT Gender Identity Not on file Sexual Orientation Not on file documented as of this encounter Miscellaneous Notes * Result Encounter Note - Lilian Nazario CMA - 10/18/2024 2:22 PM CDT Results and recommendation has been relayed to the patient. Lilian documented in this encounter Plan of Treatment Not on file documented as of this encounter Visit Diagnoses Not on filedocumented in this encounter Care Teams Elevator Repairer Relationship Specialty [place] [address] [place] [address] PCP - General 11/28/18 documented as of this encounter
--- OUTSIDE RECORDS SUMMARY | 2024-11-12 09:19 | XMS_ITS | Encounter Summary ---
Author Organization [facility] Address [address] [facility] Attn: [place] [address] Care Team Providers Care Worm Farm Laborer Name Role Phone Kyle Cole MD Primary Care Provider [phone] Encounter Details Date Type Department Care Team (Late st Contact Info) Description 03/31/1999 Outpatient Historical Lisha Scales MD [address] [place] [id number] Social History Tobacco Use Types Packs/Day Years Used Date Smoking Tobacco: Never Assessed Sex and Gender Information Value Date Recorded Sex Assigned at Not on file Legal Sex Male 3:28 AM SEE SUPERVISOR Gender Identity Not on file Sexual Orientation Not on file documented as of this encounter Plan of Treatment Upcoming Encounters Date Type Department Care Team (Late st Contact Info) Description 11/28/2024 3:00 PM CDT Office Visit [facility] Primary Care [place] [id number] [place] [address] [place] [address] Velia Gray FNP [address] [place] [address] documented as of this encounter Visit Diagnoses Not on filedocumented in this encounter Care Teams Worm Farm Laborer Relationship Specialty [place] [address] [facility] [place] [phone] PCP - General Family Practice 07/07/15 documented as of this encounter
--- OUTSIDE RECORDS SUMMARY | 2024-11-12 09:19 | XMS_ITS | Encounter Summary ---
Author Organization [facility] Address 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 Gender Identity Not on file Sexual Orientation Not on file documented as of this encounter Plan of Treatment Upcoming Encounters Date Type Department Care Team (Late st Contact Info) Description 11/28/2024 3:00 PM CDT Office Visit [facility] Primary Care [place] [id number] [place] [address] [place] [address] Velia Gray FNP [address] [facility] [address] documented as of this encounter Visit Diagnoses Diagnosis Unspecified hearing loss- Primary documented in this encounter Care Teams Putty Tinter Maker Relationship Specialty [place] [address] [facility] [place] [phone] PCP - General Family Practice 07/07/15 documented as of this encounter
--- OUTSIDE RECORDS SUMMARY | 2024-11-12 09:19 | XMS_ITS | Encounter Summary ---
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 Gender Identity Not on file Sexual Orientation Not on file documented as of this encounter Plan of Treatment Upcoming Encounters Date Type Department Care Team (Late st Contact Info) Description 11/28/2024 3:00 PM CDT Office Visit [facility] Primary Care [place] [id number] [place] [address] [place] [address] Velia Gray FNP [address] [facility] [place] [address] documented as of this encounter Visit Diagnoses Not on filedocumented in this encounter Care Teams Journey Lineman Relationship Specialty [place] [address] [facility] [place] [phone] PCP - General Family Practice 07/07/15 documented as of this encounter
--- OUTSIDE RECORDS SUMMARY | 2024-11-12 09:19 | XMS_ITS | Encounter Summary ---
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 [place] [place] [id number] documented as of this encounter Visit Diagnoses Not on filedocumented in this encounter Care Teams Gleason Operator Relationship Specialty [place] [address] [facility] [place] [phone] PCP - General Family Practice 07/07/15 documented as of this encounter
--- OUTSIDE RECORDS SUMMARY | 2024-11-12 09:19 | XMS_ITS | Encounter Summary ---
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 Gender Identity Not on file Sexual Orientation Not on file documented as of this encounter Plan of Treatment Upcoming Encounters Date Type Department Care Team (Late st Contact Info) Description 11/28/2024 3:00 PM CDT Office Visit [facility] Primary Care [place] [id number] [place] [address] [place] [address] Velia Gray FNP [address] [place] [address] documented as of this encounter Visit Diagnoses Not on filedocumented in this encounter Care Teams Leather Production Worker Relationship Specialty [place] [address] [facility] [place] [phone] PCP - General Family Practice 07/07/15 documented as of this encounter
--- OUTSIDE RECORDS SUMMARY | 2024-11-12 09:19 | XMS_ITS | Encounter Summary ---
Author Organization [facility] Address [address] [place] [address] Care Team Providers Care Gas Golf Cart Repairer Name Role Phone Kyle Cole MD Primary Care Provider [phone] Encounter Details Date Type Department Care Team (Late Contact Info) Description 01/21/2007 Outpatient Historical [facility] 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 [place] [phone] PCP - General Family Practice 07/07/15 documented as of this encounter
--- OUTSIDE RECORDS SUMMARY | 2024-11-12 09:19 | XMS_ITS | Encounter Summary ---
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 Gender Identity Not on file Sexual Orientation Not on file documented as of this encounter Plan of Treatment Upcoming Encounters Date Type Department Care Team (Late st Contact Info) Description 11/28/2024 3:00 PM CDT Office Visit [facility] Primary [place] [id number] [place] [address] [place] [address] Velia Gray FNP [address] [place] [address] documented as of this encounter Visit Diagnoses Not on filedocumented in this encounter Care Teams Mounter Clarinets Relationship Specialty [place] [address] [facility] [place] [phone] PCP - General Family Practice 07/07/15 documented as of this encounter
--- OUTSIDE RECORDS SUMMARY | 2024-11-12 09:19 | XMS_ITS | Encounter Summary ---
Author Organization [facility] Address [address] [place] [address] Care Team Providers Care Rail Car Driver Name Role Phone Kyle Cole MD Primary Care Provider Encounter Details Date Type Department Care Team (Late st Contact Info) Description 10/17/2024 Telephone [facility] [place] [address] [place] [phone] Betsy Romo MA Social History Tobacco Use Types Packs/Day Years Used Date Smoking Tobacco: Some Days Cigarettes Vaping Smokeless Tobacco: Never Sex and Gender Information Value Date Recorded Sex Assigned at Not on file Legal Sex Male 10:08 PM CDT Gender Identity Not on file Sexual Orientation Not on file documented as of this encounter Plan of Treatment Not on file documented as of this encounter Visit Diagnoses Not on filedocumented in this encounter Care Teams Rail Car Driver Relationship Specialty [place] [address] [place] [address] PCP - General 11/28/18 documented as of this encounter
--- OUTSIDE RECORDS SUMMARY | 2024-11-12 09:20 | XMS_ITS | Encounter Summary ---
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 Gender Identity Not on file Sexual Orientation Not on file documented as of this encounter Plan of Treatment Upcoming Encounters Date Type Department Care Team (Late st Contact Info) Description 11/28/2024 3:00 PM CDT Office Visit [facility] Primary Care [place] [phone] [place] [address] [place] [address] Velia Gray FNP [address] [place] [address] documented as of this encounter Visit Diagnoses Not on filedocumented in this encounter Care Teams Hydrometeorologist Relationship Specialty [place] [address] [facility] [place] [phone] PCP - General Family Practice 07/07/15 documented as of this encounter
--- OUTSIDE RECORDS SUMMARY | 2024-11-12 09:20 | XMS_ITS | Encounter Summary ---
Author Organization [facility] Address 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 Gender Identity Not on file Sexual Orientation Not on file documented as of this encounter Plan of Treatment Upcoming Encounters Date Type Department Care Team (Late st Contact Info) Description 11/28/2024 3:00 PM CDT Office Visit [facility] Primary Care [place] [phone] [place] [address] [place] [address] Velia Gray FNP [address] [facility] [address] documented as of this encounter Visit Diagnoses Diagnosis Perforation of tympanic membrane, unspecified- Primary documented in this encounter Care Teams Middle School Director Relationship Specialty [place] [address] [facility] [place] [phone] PCP - General Family Practice 07/07/15 documented as of this encounter
--- OUTSIDE RECORDS SUMMARY | 2024-11-12 09:20 | XMS_ITS | Encounter Summary ---
Author Organization [facility] Address [address] [place] [address] Care Team Providers Care Senior Policy Advisor Name Role Phone Kyle Cole MD Primary Care Provider [phone] Encounter Details Date Type Department Care Team (Late Contact Info) Description 04/09/2007 Outpatient Historical [facility] Irene Santana [facility] [address] [facility] 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 Gender Identity Not on file Sexual Orientation Not on file documented as of this encounter Plan of Treatment Upcoming Encounters Date Type Department Care Team (Late Contact Info) Description 11/28/2024 3:00 PM CDT Office Visit [facility] Primary Care [address] [address] Velia Gray FNP [phone] [place] [address] documented as of this encounter Visit Diagnoses Not on filedocumented in this encounter Care Teams Senior Policy Advisor Relationship Specialty [place] [address] [facility] [place] [phone] PCP - General Family Practice 07/07/15 documented as of this encounter
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
--- OUTSIDE RECORDS SUMMARY | 2024-11-12 09:20 | XMS_ITS | Encounter Summary ---
Author Organization [facility] Address [address] [facility] Attn: [place] [address] Care Team Providers Care Integration Architect Name Role Phone Kyle Cole MD Primary Care Provider [phone] Encounter Details Date Type Department Care Team (Late st Contact Info) Description 12/07/1999 Outpatient Historical Lisha Scales MD [address] [place] [id number] Social History Tobacco Use Types Packs/Day Years Used Date Smoking Tobacco: Never Assessed Sex and Gender Information Value Date Recorded Sex Assigned at Not on file Legal Sex Male 3:28 AM PANEL WIRER Gender Identity Not on file Sexual Orientation Not on file documented as of this encounter Plan of Treatment Upcoming Encounters Date Type Department Care Team (Late st Contact Info) Description 11/28/2024 3:00 PM CDT Office Visit [facility] [place] [id number] [place] [address] [place] [address] Velia Gray FNP [address] [place] [address] documented as of this encounter Visit Diagnoses Not on filedocumented in this encounter Care Teams Integration Architect Relationship Specialty [place] [address] [facility] [place] [address] PCP - General Family Practice 07/07/15 documented as of this encounter
--- OUTSIDE RECORDS SUMMARY | 2024-11-12 09:20 | XMS_ITS | Encounter Summary ---
Author Organization [facility] Address 5 [facility] Attn: [place] [address] Care Team Providers Care Hose Wrapper Name Role Phone Kyle Cole MD Primary Care Provider [phone] Encounter Details Date Type Department Care Team (Late st Contact Info) Description 03/16/2004 Outpatient Historical AttMarciano marshall MD [address] [address] Social History Tobacco Use Types Packs/Day Years Used Date Smoking Tobacco: Never Assessed Sex and Gender Information Value Date Recorded Sex Assigned at Not on file Legal Sex Male 3:28 AM SMOKED MEAT PREPARER Gender Identity Not on file Sexual Orientation Not on file documented as of this encounter Plan of Treatment Upcoming Encounters Date Type Department Care Team (Late st Contact Info) Description 11/28/2024 3:00 PM CDT Office Visit [facility] [place] [id number] [place] [address] [place] [address] Velia Gray FNP [address] [facility] [address] documented as of this encounter Visit Diagnoses Not on filedocumented in this encounter Care Teams Hose Wrapper Relationship Specialty [place] [address] [facility] [place] [phone] PCP - General Family Practice 07/07/15 documented as of this encounter
--- OUTSIDE RECORDS SUMMARY | 2024-11-12 09:20 | XMS_ITS | Encounter Summary ---
Author Organization [facility] Address 5 [facility] Attn: [place] [address] Care Team Providers Care Pastoral Ministries Professor Name Role Phone Kyle Cole MD Primary Care Provider [phone] Encounter Details Date Type Department Care Team (Late st Contact Info) Description 04/25/2004 Outpatient Historical AttMarciano marshall MD [address] [address] Social History Tobacco Use Types Packs/Day Years Used Date Smoking Tobacco: Never Assessed Sex and Gender Information Value Date Recorded Sex Assigned at Not on file Legal Sex Male 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 LEAD 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 Gender Identity Not on file Sexual Orientation Not on file documented as of this encounter Plan of Treatment Upcoming Encounters Date Type Department Care Team (Late st Contact Info) Description 11/28/2024 3:00 PM CDT Office Visit [facility] [place] [id number] [place] [address] [place] [address] Velia Gray FNP [address] [facility] [place] [address] documented as of this encounter Visit Diagnoses Not on filedocumented in this encounter Care Teams Pastoral Ministries Professor Relationship Specialty [place] [address] [facility] [place] [address] PCP - General Family Practice 07/07/15 documented as of this encounter
--- OUTSIDE RECORDS SUMMARY | 2024-11-12 09:20 | XMS_ITS | Encounter Summary ---
Author Organization [facility] Address 5 [facility] Attn: [place] [address] Care Team Providers Care Event Producer Name Role Phone Kyle Cole MD Primary Care Provider [phone] Encounter Details Date Type Department Care Team (Late st Contact Info) Description 09/24/2003 Outpatient Historical AttMarciano marshall MD [address] [address] Social History Tobacco Use Types Packs/Day Years Used Date Smoking Tobacco: Never Assessed Sex and Gender Information Value Date Recorded Sex Assigned at Not on file Legal 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 Male 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 Gender Identity Not on file Sexual Orientation Not on file documented as of this encounter Plan of Treatment Upcoming Encounters Date Type Department Care Team (Late st Contact Info) Description 11/28/2024 3:00 PM CDT Office Visit [facility] [place] [id number] [place] [address] [place] [address] Velia Gray FNP [address] [facility] [place] [address] documented as of this encounter Visit Diagnoses Not on filedocumented in this encounter Care Teams Event Producer Relationship Specialty [place] [address] [facility] [place] [phone] PCP - General Family Practice 07/07/15 documented as of this encounter
--- OUTSIDE RECORDS SUMMARY | 2024-11-12 09:20 | XMS_ITS | Encounter Summary ---
Author Organization [facility] Address 5 [facility] Attn: [place] [address] Care Team Providers Care Highway Painter Helper Name Role Phone Kyle Cole MD Primary Care Provider [phone] Encounter Details Date Type Department Care Team (Late st Contact Info) Description 05/30/2001 Outpatient Historical Lisha Sacles MD [address] [place] [phone] Social History Tobacco Use Types Packs/Day Years Used Date Smoking Tobacco: Never Assessed Sex and Gender Information Value Date Recorded Sex Assigned at Not on file Legal Sex Male 3:28 AM MH TEACHER Gender Identity Not on file Sexual Orientation Not on file documented as of this encounter Plan of Treatment Upcoming Encounters Date Type Department Care Team (Late st Contact Info) Description 11/28/2024 3:00 PM CDT Office Visit [facility] [place] [id number] [place] [address] [place] [address] Velia Gray FNP [address] [place] [address] documented as of this encounter Visit Diagnoses Not on filedocumented in this encounter Care Teams Highway Painter Helper Relationship Specialty [place] [address] [facility] [place] [address] PCP - General Family Practice 07/07/15 documented as of this encounter
--- OUTSIDE RECORDS SUMMARY | 2024-11-12 09:20 | XMS_ITS | Encounter Summary ---
Author Organization [facility] Address 5 [facility] Attn: [place] [address] Care Team Providers Care Registered Nurse First Assistant Name Role Phone Kyle Cole MD Primary Care Provider [phone] Encounter Details Date Type Department Care Team (Late st Contact Info) Description 08/04/1999 Outpatient Historical Lisha Scales MD [address] [place] [address] Social History Tobacco Use Types Packs/Day Years Used Date Smoking Tobacco: Never Assessed Sex and Gender Information Value Date Recorded Sex Assigned at Not on file Legal Sex Male 3:28 AM CARDIOGRAPHER Gender Identity Not on file Sexual Orientation Not on file documented as of this encounter Plan of Treatment Upcoming Encounters Date Type Department Care Team (Late st Contact Info) Description 11/28/2024 3:00 PM CDT Office Visit [facility] [place] [id number] [place] [address] [place] [address] Velia Gray FNP [address] [place] [address] documented as of this encounter Visit Diagnoses Not on filedocumented in this encounter Care Teams Registered Nurse First Assistant Relationship Specialty [place] [address] [facility] [place] [address] PCP - General Family Practice 07/07/15 documented as of this encounter
--- OUTSIDE RECORDS SUMMARY | 2024-11-12 09:20 | XMS_ITS | Encounter Summary ---
Author Organization [facility] Address [address] [place] [address] Care Team Providers Care Health Systems Analyst Name Role Phone Kyle Cole MD Primary Care Provider [phone] Encounter Details Date Type Department Care Team (Late st Contact Info) Description 06/06/2002 Outpatient Historical [facility] [address] [place] [address] Lisha Scales MD [address] [place] [address] Social History Tobacco Use Types Packs/Day Years Used Date Smoking Tobacco: Never Assessed Sex and Gender Information Value Date Recorded Sex Assigned at Not on file Legal Sex Male 3:28 AM MANAGER BUSINESS CONTINUITY Gender Identity Not on file Sexual Orientation Not on file documented as of this encounter Plan of Treatment Upcoming Encounters Date Type Department Care Team (Late st Contact Info) Description 11/28/2024 3:00 PM CDT Office Visit [facility] [place] [phone] [place] [address] Velia Gray FNP [address] [place] [address] documented as of this encounter Visit Diagnoses Not on filedocumented in this encounter Care Teams Health Systems Analyst Relationship Specialty [place] [address] [facility] [place] [phone] PCP - General Family Practice 07/07/15 documented as of this encounter
--- OUTSIDE RECORDS SUMMARY | 2024-11-12 09:20 | XMS_ITS | Encounter Summary ---
Author Organization [facility] Address [address] [facility] Attn: [place] [address] Care Team Providers Care Dental Lab Technician Name Role Phone Kyle Cole MD Primary Care Provider [phone] Encounter Details Date Type Department Care Team (Late st Contact Info) Description 12/27/2001 Outpatient Historical Lisha Scales MD [address] [place] [address] Social History Tobacco Use Types Packs/Day Years Used Date Smoking Tobacco: Never Assessed Sex and Gender Information Value Date Recorded Sex Assigned at Not on file Legal Sex Male 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 Gender Identity Not on file Sexual Orientation Not on file documented as of this encounter Plan of Treatment Upcoming Encounters Date Type Department Care Team (Late st Contact Info) Description 11/28/2024 3:00 PM CDT Office Visit [facility] [place] [phone] [place] [address] [place] [address] Velia Gray FNP [address] [facility] [address] documented as of this encounter Visit Diagnoses Not on filedocumented in this encounter Care Teams Dental Lab Technician Relationship Specialty [place] [address] [facility] [place] [address] PCP - General Family Practice 07/07/15 documented as of this encounter
--- OUTSIDE RECORDS SUMMARY | 2024-11-12 09:20 | XMS_ITS | Encounter Summary ---
Author Organization [facility] Address [address] [facility] Attn: [place] [address] Care Team Providers Care Supervisor Waterworks Name Role Phone Kyle Cole MD Primary Care Provider [phone] Encounter Details Date Type Department Care Team (Late st Contact Info) Description 12/07/1999 Outpatient Historical Lisha Scales MD [address] [place] [id number] Social History Tobacco Use Types Packs/Day Years Used Date Smoking Tobacco: Never Assessed Sex and Gender Information Value Date Recorded Sex Assigned at Not on file Legal Sex Male 3:28 AM SURFACER Gender Identity Not on file Sexual Orientation Not on file documented as of this encounter Plan of Treatment Upcoming Encounters Date Type Department Care Team (Late st Contact Info) Description 11/28/2024 3:00 PM CDT Office Visit [facility] Primary Care [place] [id number] [place] [address] [place] [address] Velia Gray FNP [address] [place] [address] documented as of this encounter Visit Diagnoses Not on filedocumented in this encounter Care Teams Supervisor Waterworks Relationship Specialty [place] [address] [address] [facility] [place] [phone] PCP - General Family Practice 07/07/15 documented as of this encounter
--- OUTSIDE RECORDS SUMMARY | 2024-11-12 09:20 | XMS_ITS | Encounter Summary ---
Author Organization [facility] Address 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 Primary Care [place] [id number] [place] [address] [place] [address] Velia Gray FNP [address] [place] [address] documented as of this encounter Visit Diagnoses Diagnosis Unspecified otitis media- Primary documented in this encounter Care Teams Domestic Cleaner Relationship Specialty [place] [address] [place] [phone] PCP - General Family Practice 07/07/15 documented as of this encounter
--- OUTSIDE RECORDS SUMMARY | 2024-11-12 09:20 | XMS_ITS | Clinical Summary ---
Author Organization [facility] Address [address] [place] [address] Phone Care Team Providers Care Doughnut Machine Operator Helper Name Role Phone Kyle Cole MD Primary Care Provider [phone] Oumar Parker PAC Unavailable [phone] Medications valACYclovir (VALTREX) 500 MG Tablet Take 500 mg by mouth daily as needed. Active ibuprofen (MOTRIN) 200 MG Tablet Take 200 mg by mouth every 8 hours as needed. Active amphetamine-dex troamphetamine (ADDERALL) 10 MG Tablet Take 10 mg by mouth. 2 Active hydrOXYzine (VISTARIL) 25 MG Capsule 2 Active esomeprazole (NexIUM) 20 MG CAPSULE DELAYED RELEASE Take 1 Capsule by mouth daily. 30 Capsule 3 Active Additional Information Patient taking differently:20 mg OralDAILY PRN, Reported on 09/05/2023 famotidine (PEPCID) 20 MG Tablet Take 1 Tablet by mouth daily. 30 Tablet 3 Active Additional Information Patient taking differently:20 mg OralDAILY PRN, Reported on 09/05/2023 HYDROcodone-evette taminophen (NORCO) 5-325 MG TabletIndicatio ns:Other closed intra-articular fracture of distal end of left radius, initial encounter Take 1 Tablet by mouth every 4 hours as needed for Severe pain. 30 Tablet 4 Active HYDROcodone-evette taminophen (NORCO) 5-325 MG TabletIndicatio ns:Closed Colles' fracture of left radius with routine healing, subsequent encounter Take 1-2 Tablets by mouth every 4 hours as needed for Moderate or more severe pain. 30 Tablet 4 Active naloxone HCl (Narcan) 4 MG/0.1ML Liquid 1 [place] by Nasal route as needed for Opioid Reversal. Administer in one nostril for symptoms of overdose (severe sleepiness, breathing problems, not responsive). Call 911. May repeat 1 spray in alternate nostril in 2-3 minutes if needed. 2 Each 4 Active Active Problems No known active problems Immunizations Immunization Administration Dates Next Due Covid-19, Mrna, Lnp-s, Pf, 3 0 Mcg/0.3 Ml Dose (Pfizer) 05/16/2021 Covid-19, Mrna, Lnp-s, Pf, 3 0 Mcg/0.3 Ml Dose, Wood-sucrose (conXt pang top) 06/15/2020 DTAP VACCINE 12/07/1999, 9,11/30/1997,05/28 Hepatitis A Vaccine 12/25/2005,10/11/2004 Hepatitis B Vaccine 12/08/1996,05/28/1996,1996 Hib Vaccine,unspecified Formulation 03/06/1996 Human Papillomavirus (HPV) 9 -valent Vaccine 01/29/2015 Human Papillomavirus Vaccine (HPV), quadrivalent 05/21/2013,06/19/2012 Inactivated Polio Vaccine 12/07/1999,04/23/1998, 11/30/1997 Influenza Vaccine, Quadrivalent, PF 11/26,01/30/2019,03/05/2017,01/29 MMR Vaccine 12/07/1999,11/30/1997 Meningococcal MCV4O 07/07/2009 TB Skin Test 02/14/1996 TDAP Vaccine 05/21/2013,06/07/2006 Family History Relation Name Status Comments Father Unknown Mother Unknown Social History Tobacco Use Types Packs/Day Years Used Date Smoking Tobacco: Never Smokeless Tobacco: Never Alcohol Use Standard Drinks/Week Comments Not Currently 0 (1 standard drink = 0.6 oz pur e alcohol) occasionally Sexually Active Control Partners Comments Yes Female Sex and Gender Information Value Date Recorded Sex Assigned at Male 09/02/2023 1:25 AM CDT Legal Sex Male 7:49 PM CDT Gender Identity Male 09/02/2023 1:25 AM CDT Sexual Orientation Not on file Last Filed Vital Signs Vital Sign Reading Time Taken Comments Blood Pressure 124/70 11/13/2023 10:46 AM CDT Pulse 100 11/13/2023 10:46 AM CDT Temperature 36.7 C (98 F) 09/06/2023 8:15 PM CDT Respiratory Rate 16 11/13/2023 10:46 AM CDT Oxygen Saturation 100% 11/13/2023 10:46 AM CDT Inhaled Oxygen Concentration - - Weight 68 kg (150 lb) 11/13/2023 10:46 AM CDT Height 170.2 cm (5' 7) 11/13/2023 10:46 AM CDT Body Mass Index 23.49 11/13/2023 10:46 AM CDT Plan of Treatment Health Maintenance Due Date Last Done Comments Hepatitis C Virus (HCV) Screening 1994 DTaP/Tdap/Td Immunization (7 - Td or Tdap) 05/22/2023 05/21/2013, 06/07/2006, 12/07/1999, Additional history exists Influenza Immunization (#1) 10/27/202411/26, 01/30/2019, 03/05/2017, Additional history exists SARS-COV-2 Immunization ( - season) 2024 05/16/2021, 06/15/2020 Respiratory Syncytial Virus (RSV) Immunization (Adult) (1 - 1-dose 75+ series) 2069 Hepatitis B Immunization Completed 997, 05/28/1996, 03/06/1996 Meningococcal Immunization (ACWY) Aged Out 07/07/2009 No longer eligible based on patient's age to complete this topic Human Papillomavirus (HPV) Immunization Completed 01/29/2015, 05/21/2013, 06/19/2012 Pneumococcal Immunization Combined Aged Out No longer eligible based on patient's age to complete this topic Rotavirus Immunization Aged Out No lo nger eligible based on patient's age to complete this topic Medical Devices Implanted Type Area Loom Changer Device Identifier Shelf Expiration Date Model / Serial / Lot Screw Bone 2.4mm 20mm Ss T8 Lock Chilo Solis Ns - [id number] Implanted:Qty: 1 on 09/06/2023 by Pola Santos DO at [facility] IMPLANT Left: Wrist SHELBIE GAMING 02.210.120 / 02.210.120 / 02.210.120 Screw Bone 2.4mm 18mm Ss T8 Lock Vangl Strdr Ns - [id number] Implanted:Qty: 1 on 09/06/2023 by Pola Santos DO at [facility] IMPLANT Left: Wrist SHELBIE GAMING 02.210.118 / 02.210.118 / 02.210.118 Screw Bone 2.7mm 16mm Lcp Ss T8 Cortex Strdr Slftp Ns Mdlr Mini Frag Sys - [id number] Implanted:Qty: 2 on 09/06/2023 by Pola Santos DO at [facility] IMPLANT Left: Wrist SHELBIE GAMING 202.876 / 202.876 / 202.876 2 Hole Left Plate Implanted:Qty: 1 on 09/06/2023 by Pola Santos DO at [facility] Left: Wrist 02.111.621 / 02.111.621 / 02.111.621 2.4 Va Locking Screw 22mm Implanted:Qty: 2 on 09/06/2023 by Pola Santos DO at [facility] Left: Wrist 02.210.122 / 02.210.122 / 02.210.122 Explanted Type Area Loom Changer Device Identifier Shelf Expiration Date Model / Serial / Lot 2.4 Cortex Screw 26mm Explanted:Qty: 1 on 09/06/2023 at [facility] Left: Wrist 201.776 / 201.776 / 201.776 Insurance [facility] Care Teams Doughnut Machine Operator Helper Relationship Specialty Start Date End Date Kyle Cole MD [address] [place] [address] PCP - General Emergency Medicine 12/15/18 Oumar Parker PAC [address] [place] [address] Physician Rx Specialist Physician Rx Specialist 09/05/23
--- OUTSIDE RECORDS SUMMARY | 2024-11-12 09:20 | XMS_ITS | Encounter Summary ---
Author Organization [facility] Address 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 DONOR RECRUITER Gender Identity Not on file Sexual Orientation Not on file documented as of this encounter Plan of Treatment Upcoming Encounters Date Type Department Care Team (Late Contact Info) Description 11/28/2024 3:00 PM CDT Office Visit [facility] Primary Care [place] [id number] [place] [address] [place] [address] Velia Gray FNP [address] [facility] [place] [address] documented as of this encounter Visit Diagnoses Diagnosis Unspecified otitis media- Primary documented in this encounter Care Teams Electronics Warfare Technician Relationship Specialty [place] [address] [place] [phone] PCP - General Family Practice 07/07/15 documented as of this encounter
--- OUTSIDE RECORDS SUMMARY | 2024-11-12 09:20 | XMS_ITS | Encounter Summary ---
Author Organization [facility] Address [address] [facility] Attn: [place] [address] Care Team Providers Care Fence Installer Name Role Phone Kyle Cole MD Primary Care Provider [phone] Encounter Details Date Type Department Care Team (Late st Contact Info) Description 12/22/2003 Outpatient Historical AttMarciano marshall MD [address] [address] Social History Tobacco Use Types Packs/Day Years Used Date Smoking Tobacco: Never Assessed Sex and Gender Information Value Date Recorded Sex Assigned at Not on file Legal Sex Male 3:28 AM CLINICAL DATA ASSOCIATE Gender Identity Not on file Sexual Orientation Not on file documented as of this encounter Plan of Treatment Upcoming Encounters Date Type Department Care Team (Late st Contact Info) Description 11/28/2024 3:00 PM CDT Office Visit [facility] Primary Care [place] [id number] [place] [address] [place] [address] Velia Gray FNP [address] [place] [address] documented as of this encounter Visit Diagnoses Not on filedocumented in this encounter Care Teams Fence Installer Relationship Specialty [place] [address] [address] [facility] [place] [phone] PCP - General Family Practice 07/07/15 documented as of this encounter
--- OUTSIDE RECORDS SUMMARY | 2024-11-12 09:20 | XMS_ITS | Clinical Summary ---
Author Organization [facility] Administrative Offices Address [address] [place] [address] Care Team Providers Care Office Receptionist Name Role Phone Kyle Verma MD Primary Care Provider [phone] Allergies No known active allergies Medications ibuprofen (MOTRIN) 200 mg tablet Take 200 mg by mouth Continuous as needed. Active esomeprazole (NexIUM) 20 mg Capsule, Delayed Release(E.C.) TAKE 1 CAPSULE BY MOUTH EVERY DAY 90 Capsule 1 3 Active Additional Information Patient not taking.Reported on 02/21/2024 famotidine (PEPCID) 20 mg tablet Take 1 Tablet (20 mg) by mouth daily. 90 Tablet 1 3 Active Additional Information Patient not taking.Reported on 02/21/2024 hydrOXYzine pamoate (VISTARIL) 25 mg capsuleIndicatio ns:Anxiety,Insom hector, unspecified type Take 1-2 Capsules (25-50 mg) by mouth 3 times daily as needed for Insomnia or Anxiety. 180 Capsule 5 4 Active lamoTRIgine (LaMICtal) 25 mg tabletIndication s:Mood swings Take 1 Tablet (25 mg) by mouth daily. 30 Tablet 1 4 Active naltrexone (DEPADE) 50 mg tabletIndication s:Alcoholism (CMS/HCC) TAKE 1 TABLET BY MOUTH EVERY DAY 30 Tablet 5 Active Active Problems Patient Care Coordination No te Formatting of this note migh t be different from the original. 02/01/2018 Therapist: Madyson Germain (prior) 06/03/2018 new psychiatrist - name (?) 02/21/24: ABUSING ADDERALL / DR. VERMA's OFFICE NO LONGER FILLING> Problem Noted Date Diagnosed Date Cold sore 03/26/2024 Alcoholism 02/21/2024 Assessment & Plan (02/21/2024 2:22 PM RN DIABETES EDUCATOR): Uncontrolled. PT will to start naltrexone, discussed AA, rehab. Discussed working on weaning off. Also was straight forward with pt and let him know likely his long standing untreated mental health disorders have been making it difficult to remain abstinent. He was agreeable to starting lamictal as well. Gastroesophageal reflux disease without esophagi tis 03/19/2019 Assessment & Plan (10/20/2020 5:05 PM CDT): Uncontrolled. Sending in Rx for PPI, discussed BID x 2 weeks, then wean down to daily. Detailed discussion regarding diet. If no improvement to have him see GI and/or check EGD. Assessment & Plan (03/19/2019 2:26 PM RN DIABETES EDUCATOR): Suboptimal control. Start PPI, GERD diet encouraged, discussed. Alcohol abuse 03/19/2019 Assessment & Plan (12/07/2021 5:34 PM CDT): Improving. Sober x 1 month, along w/ dad and girlfriend. Seeing therapy/court mandated, encouraged maintenance. Assessment & Plan (10/21/2021 5:04 PM CDT): Suboptimal control. Some improvement, maximum of 5 drinks per week. His girlfriend holds his ID so that he can get more when he go out. No longer drinking hard alcohol. Still considering rehab. Gave list in AVS. Encouraged limits and cessation. Assessment & Plan (03/19/2019 2:29 PM RN DIABETES EDUCATOR): Uncontrolled. Was drinking 1/5 liquor/day. ER visit 02/26/2019. Encouraged complete cessation, he says has cut down;ref to Psychiatry. Mood swings 03/19/2019 Assessment & Plan (03/19/2019 2:26 PM RN DIABETES EDUCATOR): Suboptimal control. Long discussion - no active SI, emphasized importance of seeing psychiatry due to mood swings, concerns bipolar, alcohol abuse, ADD, anxiety. Referral Psychiatry ordered again. Hydroxyzine helps anxiety, continue To see Psychiatry. Has hotlines / resources in AVS, CRS #. Herpes genitalis 06/03/2018 Assessment & Plan (10/20/2020 5:06 PM CDT): Stable. Restart valtrex per pt request Assessment & Plan (03/19/2019 2:28 PM RN DIABETES EDUCATOR): Stable. Refilled meds Assessment & Plan (01/30/2019 1:07 PM RN DIABETES EDUCATOR): Stable and Controlled. Current medication regimen affective, continue same. Assessment & Plan (07/31/2018 5:09 PM CDT): Stable. Current medication regimen affective, continue same. Refill sent to pharmacy. Assessment & Plan (06/03/2018 2:53 PM CDT): Acute. New dx, girlfriend also w/ confirmed dx and on medication. Start valtrex 1 g BID x 10 days, also gave Rx for any recurrent outbreaks 500mg BID x 3 days per outbreak. Vitamin B12 deficiency (non anemic) 02/04/2018 Chronic daily headache 02/01/2018 Assessment & Plan (02/01/2018 2:02 PM RN DIABETES EDUCATOR): Suboptimal control. Daily, bilateral, can be severe. Symptom diary. Non-focal neuro exam. Check basic labs. Says nothing otc works, but not taking anything lately - discussed trial tylenol, etc. Sounds like tension type. Acute low back pain without sciatica 03/05/2017 Assessment & Plan (03/05/2017 11:51 AM RN DIABETES EDUCATOR): Suboptimal control. No red flags. Several weeks. Nsaids, gave back pain exercises. Moderate episode of recurrent major depressive d isorder 07/07/2015 Overview (07/31/2018): 07/07/2015 no active SI; start zoloft 50mg, [...] stopped seeing therapist and psychiatrist. Stopped propranolol. Assessment & Plan (02/21/2024 2:20 PM RN DIABETES EDUCATOR): Uncontrolled. Long discussion with pt and girlfriend, has been difficult to get him in with psychiatry and compliance has been a long standing issue. He is agreeable and willing to try a mood stabilizer. Sending in lamictal 25 mg daily. SE discussed. Pt to follow up for monitoring in 1 month. Encouraged counseling. Assessment & Plan (05/22/2023 12:19 PM CDT): Stable . Continue current treatment. Counseling discussed/encouraged. FMLA paperwork to be sent and we can update. Assessment & Plan (11/30/2022 4:18 PM CDT): Stable and Improving. Continue current treatment. Counseling discussed/encouraged. FMLA paperwork completed and faxed. Assessment & Plan (09/27/2022 5:18 PM CDT): Suboptimal control. Continue current treatment. From 09/15/22 - side effects w/ sertraline 50mg (took one dose, stopped); discussed to be on 1/2 tablet 25mg QD for a week then go up. Prn hydroxyzine. Time off FMLA really helped him in terms of stress, feels like better managed now. Needs work to return w/o restrictions. Looking into therapists in [place] still. No SI, if applicable discussed stress relief, sleep tips and/or see AVS. Every Word Counts - Depression (Sarah) Assessment & Plan (09/15/2022 11:10 AM CDT): Suboptimal control and Worsening. Continue current treatment. Start sertraline 50mg QD. Continue prn hydroxyzine. Looking into therapist in [place]. Taking 2 week FMLA leave 09/15/2022 to 09/29/2022. Pt agreeable to starting SSRI/SNRI or similar depression/anxiety medication. We discussed pros/cons/alternatives, black box warnings (including possible thoughts of hurting self, if applicable), common side effects, and typical 3-4 week delay before it starts to help symptoms. Pt understands and agrees to contact me or my office immediately if any significant problems, concerns or questions. No SI, if applicable discussed stress relief, sleep tips and/or see AVS. Every Word Counts - Depression (Sarah) Assessment & Plan (12/14/2021 4:47 PM CDT): Suboptimal control. Long discussion with pt, > 50% of visit was spent counseling. Discussed importance of routine counseling. Discussed benefit of daily preventative medication. Pt to follow up with PCP in 1 month after restarting Adderall. Will continue to address pt depression. Assessment & Plan (10/20/2020 5:06 PM CDT): Suboptimal control. Long discussion, offered restarting SSRI or SNRI, pt hesitant. Discussed restarting adderall and seeing if focus helps with anxiety. Pt to follow up in 1 month with PCP for monitoring. Consider treating mood if no improvement. All questions and concerns addressed this visit, pt agrees with plan of care. Assessment & Plan (03/19/2019 2:25 PM RN DIABETES EDUCATOR): Status: Major Depression Recurrent Severe Without psychotic symptoms - Suboptimal control Plan: Refer to Psychiatry. Long discussion - no active SI, emphasized importance of seeing psychiatry due to mood swings, concerns bipolar, alcohol abuse, ADD, anxiety. Hydroxyzine helps anxiety, continue To see Psychiatry. Has hotlines / resources in AVS, CRS #. Assessment & Plan (01/30/2019 1:06 PM RN DIABETES EDUCATOR): Status: Major Depression Recurrent Moderate - Suboptimal control Plan: Refer to Psychiatry. and Follow up with PCP Assessment & Plan (07/31/2018 5:08 PM CDT): Status: Major Depression Recurrent Moderate - Suboptimal control Plan: Refer to Psychiatry. and referral to psychology. Assessment & Plan (02/01/2018 2:01 PM RN DIABETES EDUCATOR): on seroquel, hydroxyzine; from Psychiatry Dr. Piyush Muñoz MD. Sees Therapist Madyson Germain. Discussed - defer meds to psychiatry, continue therapy, work on stress relief. Assessment & Plan (04/02/2017 9:29 AM RN DIABETES EDUCATOR): Status: Major Depression Recurrent Moderate - Suboptimal control Plan: Refer to Psychiatry. Dose inc On prozac to 40mg, prn hydroxyzine. With cocaine use, recommended rehab and detox programs, list given. Ref Dr. Heard, addiction / Psychiatry as well. Assessment & Plan (03/05/2017 11:49 AM RN DIABETES EDUCATOR): Status: Major Depression Recurrent Moderate - Stable and Suboptimal control Plan: Worsening/Not well controlled. Medication initiated/adjusted. See orders. Possible SE and expected onset of action reviewed. \start prozac 20mg. Pt agreeable to starting SSRI/SNRI or similar depression/anxiety medication. We discussed pros/cons/alternatives, black box warnings (including increased suicidality), common side effects, and typical 3-4 week delay before it starts to help symptoms. Pt understands and agrees to contact me or my office immediately if any significant problems, concerns or questions. Stress/sleep tips Prn hydroxyzine F/u 1mo Assessment & Plan (11/01/2016 2:32 PM CDT): Status: Major Depression Recurrent Mild - Stable Plan: not on medications, stopped effexor. No SI. Doesn't want to be on medications at this time. Assessment & Plan (07/07/2015 3:54 PM CDT): MAJOR DEPRESSION ALGORITHM PHQ-2 & PHQ-9 Little interest or pleasure in doing things:: Nearly every day (07/07/151499) Feeling down, depressed, or hopeless:: Nearly every day (07/07/151499) PHQ-2 Total: 6 (07/07/151499) Trouble falling or staying asleep, or sleeping too much:: Nearly every day (07/07/151499) Feeling tired or having little energy:: More than half the days (07/07/151499) Poor appetite or overeating:: Nearly every day (07/07/151499) Feeling bad about yourself-or that you are a failure or have let yourself or your family down:: Nearly every day (07/07/151499) Trouble concentrating on things, such as reading the newspaper or watching television:: More than half the days (07/07/151499) Moving or speaking so slowly that other people could have noticed. Or the opposite-being so fidgety or restless that you have been moving around a lot more than usual:: More than half the days (07/07/151499) Thoughts that you would be better off , or of hurting yourself in some way:: Nearly every day (07/07/151499) PHQ-9 Total: 24 (07/07/151499) If you checked off any problems, how difficult have these problems made it for you to do your work, take care of things at home, or get along with other people?: Somewhat difficult (07/07/151499) Check if true In addition: [x] Patient has never experienced a manic or hypomanic episode [x] Symptoms are not the direct result of substance abuse, not related to acute bereavement, represent a change from previous functioning and are not better explained by a medical diagnosis Status: Uncontrolled. Plan: He was given a prescription for an antidepressant., He was scheduled for a future appointment to do an additional evaluation. and His suicide risk assessment was completed. . Anxiety 07/07/2015 Overview (03/19/2019): 04/02/2017 Stress/sleep, prn hydroxyzine. prozac to 40mg.Cocaine worsening. Rehab/psych 02/01/2018 on seroquel, hydroxyzine; from Psychiatry Dr. Piyush Muñoz MD. Sees Therapist Madyson Davistz. 06/03/2018 Only on propranolol, has a new psychiatrist. 03/19/2019 hydroxyzine prn, ref Psychiatry Assessment & Plan (05/22/2023 12:20 PM CDT): Stable, ok to continue PRN hydroxyzine. Pt will send new FMLA forms. Assessment & Plan (12/14/2021 4:51 PM CDT): Suboptimal control. Long discussion, reassuring hydroxyzine working. Suspect he would benefit from daily preventative, has tried a lot of medications. Does not like SSRIs, has tried effexor, consider trintellix. Counseling. Assessment & Plan (12/07/2021 5:35 PM CDT): Suboptimal control. Restart prn hydroxyzine. No SI, if applicable discussed stress relief, sleep tips and/or see AVS. Assessment & Plan (10/20/2020 5:07 PM CDT): Suboptimal control. Restart adderall for concentration, see if helps with mood. Pt to see PCP in 1 month for follow up. Consider restarting SSRI of no improvement. Assessment & Plan (03/19/2019 2:27 PM RN DIABETES EDUCATOR): Suboptimal control. Long discussion - no active SI, emphasized importance of seeing psychiatry due to mood swings, concerns bipolar, alcohol abuse, ADD, anxiety. Referral Psychiatry ordered again. Hydroxyzine helps anxiety, continue To see Psychiatry. Has hotlines / resources in AVS, CRS #. Assessment & Plan (01/30/2019 1:07 PM RN DIABETES EDUCATOR): Suboptimal control. Long discussion with patient regarding his anxiety. Strongly encouraged him to follow-up with psychiatry as he has several underlying issues that are contributing to his symptoms. Patient needs potential mood stabilizer to help with his bipolar. He may benefit from stimulant to help with his ADD/will defer this to PCP and patient will follow-up in the next few weeks. In meantime will try hydroxyzine again as it is not a controlled substance. Assessment & Plan (06/03/2018 2:54 PM CDT): Suboptimal control. Only on propranolol, new psychiatrist. No SI. Note for work given per pt request. Works at [employer], needed a work stating he has anxiety, so he doesn't have to work certain areas due to his anxiety. Assessment & Plan (02/01/2018 2:01 PM RN DIABETES EDUCATOR): Suboptimal control. on seroquel, hydroxyzine; from Psychiatry Dr. Piyush Muñoz MD. Sees Therapist Madyson Germain. Work on stress relief Assessment & Plan (04/02/2017 9:32 AM RN DIABETES EDUCATOR): Uncontrolled. Stress/sleep, prn hydroxyzine. prozac to 40mg. Cocaine worsening. Rehab/psych Assessment & Plan (03/05/2017 11:50 AM RN DIABETES EDUCATOR): Uncontrolled. Start prozac, prn hydroxyzine. Ref Psychiatry. Stress/sleep tips. Assessment & Plan (11/01/2016 2:33 PM CDT): Suboptimal control. Discussed. Off effexor. Declines medications. Work on stress/sleep. Insomnia 07/07/2015 Assessment & Plan (12/07/2021 5:35 PM CDT): Suboptimal control. Restart prn hydroxyzine. No SI, if applicable discussed stress relief, sleep tips and/or see AVS. Assessment & Plan (03/19/2019 2:28 PM RN DIABETES EDUCATOR): Suboptimal control. Prn hydroxyzine, melatonin, encouraged stress/sleep tips. Assessment & Plan (04/02/2017 9:31 AM RN DIABETES EDUCATOR): Uncontrolled. Stress/sleep, prn hydroxyzine. Cocaine worsening. Rehab/psych Assessment & Plan (03/05/2017 11:49 AM RN DIABETES EDUCATOR): Suboptimal control. Sleep/stress tips. Prn hydroxyzine. ADD (attention deficit disorder) Overview (02/25/2024): 07/07/2015 prev on adderall; abused? Didn't like how he felt on it. 03/05/2017 took adderall 10mg briefly fall 2016; holding off on refills.03/19/2019 defer any medications to Psychiatry 02/21/24: ABUSING ADDERALL / DR. VERMA's OFFICE NO LONGER FILLING> Assessment & Plan (02/21/2024 2:20 PM RN DIABETES EDUCATOR): Pt off adderall, will make PCP aware he was misusing his medication. Would advise to no longer Rx. Assessment & Plan (05/22/2023 12:19 PM CDT): Stable. Managed by PCP. Current medication regimen affective, continue same. Assessment & Plan (11/30/2022 4:19 PM CDT): Stable. Managed by PCP. Current medication regimen affective, continue same. Assessment & Plan (09/15/2022 11:11 AM CDT): Stable. Increase to #45 adderall 10mg / month. Usually 10mg QD, may take an extra one QD up to 15 days/mo. No problems with current medications. Assessment & Plan (12/14/2021 4:48 PM CDT): Suboptimal control. Managed by PCP, SE of medications discussed with pt in detail. Pt to follow up in 1 month for monitoring. Assessment & Plan (10/20/2020 5:07 PM CDT): Suboptimal control. Discussed with PCP, agreeable to starting 10 mg short acting adderall with hx of sleep issues. Pt to follow up in 1 month. Assessment & Plan (03/19/2019 2:27 PM RN DIABETES EDUCATOR): Suboptimal control. Long discussion - no active SI, emphasized importance of seeing psychiatry due to mood swings, concerns bipolar, alcohol abuse, ADD, anxiety. Referral Psychiatry ordered again. To see Psychiatry. Defer any medications to them. PCP not comfortable filling them here. Assessment & Plan (01/30/2019 1:08 PM RN DIABETES EDUCATOR): Suboptimal control. Will defer to PCP for any potential medications. Patient has follow-up on 03/05/2019 Assessment & Plan (03/05/2017 11:51 AM RN DIABETES EDUCATOR): Leroy. took adderall 10mg briefly fall 2016; holding off on refills for now - aim to control depression/anxiety Assessment & Plan (11/01/2016 2:31 PM CDT): Suboptimal control. Starting adderall 10mg IR. Discussed treatment options for ADHD including medications (stimulant, non-stimulant), therapy, behavioral changes. Pt agreeable to starting stimulant medication. Adderall. Discussed and pt is aware of the side effects of medications, black box warnings, potential risks including but not limited to serious cardiovascular events, abuse/dependency and abuse potential, trouble sleeping, mood changes, aggressive behavior, high blood pressure, irregular heart beats, loss of appetite, diarrhea, vomiting, and rarely some people will have heart attacks, strokes, even sudden . Pt agrees to let me know if any severe problems occur. Also discussed the need to sign our controlled substances agreement, no early refills, no refills for lost prescriptions, etc. See scanned. Plan to titrate to appropriate dose as needed. Follow up in about 1 month, earlier if needed. 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 Ref Psychiatry / Addiction, also ref Rehab/detox. 02/01/2018 says remains sober Assessment & Plan (10/20/2020 5:06 PM CDT): Remission status: in remission Assessment & Plan (01/30/2019 1:07 PM RN DIABETES EDUCATOR): Stable, commended patient for abstaining from cocaine and other substances. Offered patient support. Assessment & Plan (02/01/2018 1:59 PM RN DIABETES EDUCATOR): 02/01/2018 says remains sober months Assessment & Plan (04/02/2017 9:31 AM RN DIABETES EDUCATOR): SUBSTANCE USE DISORDER DIAGNOSIS DOCUMENTATION Patient Denies Patient Reports Within a 12 month period [] [x] Often taken in larger amounts or over a longer period than intended [] [x] Persistent desire or unsuccessful efforts to cut down or control use [] [x] Great deal of time spent obtaining, using or recovering from substance's effects [] [x] Craving or strong desire/urge to use [] [x] Recurrent use resulting in failure to fulfill major role obligations at work, school or home [] [x] Continued use despite persistent or recurrent social or interpersonal problems caused or exacerbated by effects of the substance [] [x] Important social, occupational or recreational activities given up or reduced because of substance use [] [x] Recurrent use in situations in which it is physically hazardous [] [x] Continued use despite knowledge of having a persistent or recurrent physical or psychological problem likely to have been caused or exacerbated by the substance [x] [] *Tolerance: need for markedly increased amounts to achieve intoxication or desired effect OR Markedly diminished affect with continued use of the same amount of substance [x] [] * Withdrawal: characteristic withdrawal syndrome OR taking substance (or closely related one) to relieve or avoid withdrawal symptoms *NOT considered to be met individuals taking substances solely under appropriate medical supervision 2-3 - Abuse or Non-Dependent Use (Mild Use Disorder) >4 - Dependence (4-5 moderate Use D/O, >6 Severe) Plan: Uncontrolled. With cocaine use, recommended rehab and detox programs, list given. Ref Dr. Heard, addiction / Psychiatry as well. EKG done here. Cessation/abstinence encouraged. Encounters Date Type Department Care Team Description 09/30/2024 External Device Data [facility]STRACTION Provider, Abstract 09/11/2024 Refill [facility] [place] [id number] [facility] [place] [id number] Molly Malagon, DIRECTOR [employer] Alcoholism ([facility]) 08/26/2024 External Device Data [facility] Provider, Abstract 08/13/2024 External Device Data [facility]STRA[facility] Provider, Abstract from Last 3 Months Immunizations Immunization Administration Dates Next Due (ADACEL/BOOSTRIX)(10 YR UP) TDAP VACCINE, 0.5ML, IM 05/21/2013,06/07/2006 (GARDASIL 9)(9-45 YRS) HUMAN PAPILLOMAVIRUS VACCINE, TYPES 6, 11, 16, 18, 31, 33, 45, 52, 58, NONAVALENT (9VHPV), 2 OR 3 DOSE, IM 01/29/2015 (GARDASIL)(9-45 YRS) HUMAN PAPILLOMAVIRUS VACCINE, TYPES 6, 11, 16, 18, QUADRIVALENT (4VHPV), 3 DOSE, IM 05/21/2013,06/19/2012 (INFANRIX)(6 WKS-6 YRS) DIPT HERIA, TETANUS TOXOIDS, AND ACCELLULAR PERTUSSIS VACCINE (DTAP), 0.5 ML IM 12/07/1999,04/23/1998,11/30/1997,05/28 (IPOL)(6 WKS AND UP) POLIOVI GONSALO VACCINE, INACTIVATED (IPV), 3 DOSE, SUBCUT OR IM 12/07/1999,04/23/1998,11/30/1997 (M-M-R II/PRIORIX)(12 MO UP) MEASLES, MUMPS AND RUBELLA VIRUS VACCINE, 0.5 ML IM/SUBCUT 12/07/1999,11/30/1997 (PFIZER ROMARIO)(12 YR UP PRIMA RY SERIES) COVID-19 VACCINE - EMERGENCY USE AUTHORIZATION, MRNA, ROMARIO(PF) 30 MCG/0.3 ML IM SUSP 06/15/2020 (PFIZER)(12 YR UP) COVID-19 VACCINE - EMERGENCY USE AUTHORIZATION, MRNA, [id number](PF) 30 MCG/0.3 ML IM SUSP 05/16/2021,06/04/2020 HIB, Unspecified Formulation 03/06/1996 Hepatitis A Vaccine 12/25/2005,10/11/2004 Hepatitis B Vaccine 12/08/1996,05/28/1996,1996 INFLUENZA VACCINE QUADRIVALE NT 3 YR UP PF IM 03/05/2017,01/29/2015 INFLUENZA VACCINE QUADRIVALE NT 6 MOS UP PF IM 12/14/2021,01/30/2019 Influenza Seasonal Unspecifi ed Formulation IM 12/14/2021,01/30/2019,03/05/2017,01/29 Meningococcal A Conjugate Vaccine IM 07/07/2009 Skin Test TB 02/14/1996 Family History Medical History Relation Name Comments Healthy Father Healthy Mother Other Other Pt is Adopted Relation Name Status Comments Father Alive Mother Alive Other Social History Tobacco Use Types Packs/Day Years Used Date Smoking Tobacco: Never Smokeless Tobacco: Never Tobacco Cessation:Counseling Given: No Alcohol Use Standard Drinks/Week Comments Not Currently 0 (1 standard drink = 0.6 oz pur e alcohol) social Sex and Gender Information Value Date Recorded Sex Assigned at Not on file Legal Sex Male 3:28 AM RN DIABETES EDUCATOR Gender Identity Not on file Sexual Orientation Not on file 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 Not on file Not on file Not on madi e Last Filed Vital Signs Vital Sign Reading Time Taken Comments Blood Pressure 128/78 03/26/2024 9:00 AM RN DIABETES EDUCATOR Pulse 79 03/26/2024 9:00 AM RN DIABETES EDUCATOR Temperature 36.2 C (97.1 F) 03/26/2024 9:00 AM RN DIABETES EDUCATOR Respiratory Rate 18 03/26/2024 9:00 AM RN DIABETES EDUCATOR Oxygen Saturation 98% 03/26/2024 9:00 AM RN DIABETES EDUCATOR Inhaled Oxygen Concentration - - Weight 72.7 kg (160 lb 3.2 oz) 03/26/2024 9:00 A M RN DIABETES EDUCATOR Height 170.2 cm (5' 7) 03/26/2024 9:00 AM RN DIABETES EDUCATOR Body Mass Index 25.09 03/26/2024 9:00 AM RN DIABETES EDUCATOR Plan of Treatment Upcoming Encounters Date Type Department Care Team (Late st Contact Info) Description 11/28/2024 3:00 PM CDT Office Visit [facility] [place] [id number] [place] [address] [place] [id number] Velia Gray FNP [id number] [facility] [place] [phone] Health Maintenance Due Date Last Done Comments DTAP/TDAP/TD VACCINES (7 - T d or Tdap) 05/22/2023 05/21/2013, 06/07/2006, 12/07/1999, Additional history exists Preventative Visit- Commercial 02/27/2024 0 07/15/2021, 10/20/2020, 01/30/2019, Additional history exists INFLUENZA VACCINE (#1) 2024 , 12/14/2021, 01/30/2019, Additional history exists COVID-19 Vaccine (2024- 6 season) 2024 05/16/2021, 07/06/2020, 06/15/2020, Additional history exists HEPATITIS B VACCINES Completed 12/08/1996, 05/28/1996, 03/06/1996 HPV VACCINES Completed 01/29/2015, 04/27, 06/19/[address] Care Teams Office Receptionist Relationship Specialty [place] [address] [place] [address] PCP - General Family Practice 07/07/15
--- OUTSIDE RECORDS SUMMARY | 2024-11-12 09:20 | XMS_ITS | Encounter Summary ---
Author Organization 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 Gender Identity Not on file Sexual Orientation Not on file documented as of this encounter Plan of Treatment Upcoming Encounters Date Type Department Care Team (Late st Contact Info) Description 11/28/2024 3:00 PM CDT Office Visit [facility] Primary Care [place] [id number] [place] [address] [place] [address] Velia rGay FNP [address] [place] [address] documented as of this encounter Visit Diagnoses Not on filedocumented in this encounter Care Teams Live Games Dealer Relationship Specialty [place] [address] [facility] [place] [phone] PCP - General Family Practice 07/07/15 documented as of this encounter
--- OUTSIDE RECORDS SUMMARY | 2024-11-12 09:20 | XMS_ITS | Encounter Summary ---
Author Organization [facility] Address 5 [facility] Attn: [place] [address] Care Team Providers Care Stock Sorter Name Role Phone Kyle Cole MD Primary Care Provider [phone] Encounter Details Date Type Department Care Team (Late st Contact Info) Description 09/24/2003 Outpatient Historical AttMarciano marshall MD [address] [address] Social History Tobacco Use Types Packs/Day Years Used Date Smoking Tobacco: Never Assessed Sex and Gender Information Value Date Recorded Sex Assigned at Not on file Legal Sex Male 3:28 AM JORDAN MAN Gender Identity Not on file Sexual Orientation Not on file documented as of this encounter Plan of Treatment Upcoming Encounters Date Type Department Care Team (Late st Contact Info) Description 11/28/2024 3:00 PM CDT Office Visit [facility] Primary Care [place] [address] [place] [address] [place] [address] Velia Gray FNP [address] [place] [address] documented as of this encounter Visit Diagnoses Not on filedocumented in this encounter Care Teams Stock Sorter Relationship Specialty [place] [address] [facility] [place] [phone] PCP - General Family Practice 07/07/15 documented as of this encounter
--- OUTSIDE RECORDS SUMMARY | 2024-11-12 09:20 | XMS_ITS | Encounter Summary ---
Author Organization [facility] Address 5 [facility] Attn: [place] [address] Care Team Providers Care Nurse Ldr Name Role Phone Kyle Cole MD Primary Care Provider [phone] Encounter Details Date Type Department Care Team (Late st Contact Info) Description 04/12/2005 Outpatient Historical AttMarciano marshall MD [address] [address] Social History Tobacco Use Types Packs/Day Years Used Date Smoking Tobacco: Never Assessed Sex and Gender Information Value Date Recorded Sex Assigned at Not on file Legal 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 [address] documented as of this encounter Visit Diagnoses Not on filedocumented in this encounter Care Teams Nurse Ldr Relationship Specialty [place] [address] [facility] [place] [phone] PCP - General Family Practice 07/07/15 documented as of this encounter
--- OUTSIDE RECORDS SUMMARY | 2024-11-12 09:20 | XMS_ITS | Encounter Summary ---
Author Organization [facility] Address 5 [facility] Attn: [place] [address] Care Team Providers Care Source Water Protection Specialist Name Role Phone Kyle Cole MD Primary Care Provider [phone] Encounter Details Date Type Department Care Team (Late st Contact Info) Description 12/17/2003 Outpatient Historical AttMarciano marshall MD [address] [address] Social History Tobacco Use Types Packs/Day Years Used Date Smoking Tobacco: Never Assessed Sex and Gender Information Value Date Recorded Sex Assigned at Not on file 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 Male 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 DIRECTOR OF PRODUCT 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 Gender Identity Not on file Sexual Orientation Not on file documented as of this encounter Plan of Treatment Upcoming Encounters Date Type Department Care Team (Late st Contact Info) Description 11/28/2024 3:00 PM CDT Office Visit [facility] Primary Care [place] [id number] [place] [address] [place] [address] Velia Gray FNP [address] [place] [address] documented as of this encounter Visit Diagnoses Not on filedocumented in this encounter Care Teams Source Water Protection Specialist Relationship Specialty [place] [address] [facility] [place] [phone] PCP - General Family Practice 07/07/15 documented as of this encounter
--- OUTSIDE RECORDS SUMMARY | 2024-11-12 09:20 | XMS_ITS | Clinical Summary ---
Author Organization [facility] Address [address] [facility] [place] [address] Care Team Providers Care Electrotype Caster Name Role Phone Marciano Santana MD Primary Care [facility] Source Comments [facility],non-owned Affiliates and Associated Physician Practices is amultiple site organization consisting of ambulatory clinics and hospital sitesin [place], [place], [place] and [place]. This disclosure is being madepursuant to the Care Everywhere program and may not contain all information available regarding this patient. Last updated 17.[facility] [employer] Allergies No known active allergies Medications * Be aware that medications may not be up to date on this document. Always verify current medications with the patient. multivitamin daily (THERAGRAN) tablet Take 1 Tab by mouth daily with food. 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 Gender Identity Not on file Sexual Orientation Not on file Last Filed Vital Signs Vital Sign Reading Time Taken Comments Blood Pressure 122/80 10/30/2009 9:04 PM CDT Pulse 80 10/30/2009 9:04 PM CDT Temperature 36.9 C (98.4 F) 10/30/2009 9:04 PM CDT Respiratory Rate 16 10/30/2009 9:04 PM CDT Oxygen Saturation - - Inhaled Oxygen Concentration - - Weight 54.1 kg (119 lb 4.3 oz) 10/30/2009 9:04 P M CDT Height - - Body Mass Index - - Plan of Treatment Health Maintenance Due Date Last Done Comments HIV SCREENING 2009 HEPATITIS C SCREENING 11/14/2012 DTAP/TDAP/TD VACCINES (1 - Tdap) 2013 HEPATITIS B VACCINE (1 of 3 - 19+ 3-dose series) 2013 HPV VACCINE (1 - 3-dose SCDM series) 2021 DEPRESSION SCREENING 02/27/2024 COVID-19 VACCINE (1 - 2023-2 5 season) 2024 INFLUENZA VACCINE (#1) 2024 ZOSTER VACCINE (1 of 2) 2044 HIB VACCINE Aged Out No longer eligi ble based on patient's age to complete this topic MENINGOCOCCAL (Group B) VACC INE SHARED DECISION-MAKING Aged Out No longer eligibl e based on patient's age to complete this topic MENINGOCOCCAL GROUPS A/C/Y/W VACCINE Aged Out No longer eligible b ased on patient's age to complete this topic PNEUMOCOCCAL VACCINE Aged Out No long er eligible based on patient's age to complete this topic Insurance [facility] Member Subscriber Plan / Payer (Ef fective for All Dates) Name:Munir Hanna Relation to Subscriber:Child Name:NICHOLAS HANNA Subscriber ID:Not on file (Home) Address: [address] [place] [address] Payer ID:[id number] (NAIC) Type:O Address: [facility] [id number] [facility] Care Teams Electrotype Caster Relationship Specialty Start Date End Date Marciano Santana MD [address] [facility] [address] [place] [address] PCP - General 10/30/09
[2024-11-12 09:40] LABS: Alanine Aminotransferase 40 U/L (6-50); Albumin Level 4.9 g/dL (3.5-5.1); Alkaline Phosphatase 58 U/L (38-126); Anion Gap 7 mmol/L (4-12); Aspartate Amino Transferase 33 U/L (17-59); Bilirubin,Total 1.6 mg/dL (0.2-1.3); Blood Urea Nitrogen 12 mg/dL (9-20); Calcium 9.6 mg/dL (8.4-10.2); Carbon Dioxide 29 mmol/L (22-30); Chloride 102 mmol/L (98-107); Estimated CRCL calculation 92 ml/min; Estimated Glomerular Filt Rate > 60; Glucose 93 mg/dL (65-110); Potassium 3.9 mmol/L (3.4-5.0); Sodium 138 mmol/L (137-145); Total Protein 8.4 g/dL (6.3-8.2)
[2024-11-12] MEDS: SODIUM CHLORIDE 0.9% IV 1,000 ML 999 ML IV CONT (09:41)
[2024-11-12] MEDS: MORPHINE SULFATE (*CRX) 4 MG/ML INJ 2 MG IV PUSH (09:42)
[2024-11-12] MEDS: ONDANSETRON INJ 4 MG/2 ML VIAL IV PUSH (09:42)
--- OUTSIDE RECORDS SUMMARY | 2024-11-12 11:08 | XMS_ITS | Encounter Summary ---
Author Organization [facility] Address [address] [place] [address] Care Team Providers Care Director Of Consumer Marketing Name Role Phone Kyle Cole MD Primary Care Provider [phone] Encounter Details Date Type Department Care Team (Late st Contact Info) Description 06/08/1998 Outpatient Historical HIS AUDIOLOGY Dru Lawler MD [address] [facility] [address] Unspecified hearing loss (Primary Dx) Social History Tobacco Use Types Packs/Day Years Used Date Smoking Tobacco: Never Assessed Sex and Gender Information Value Date Recorded Sex Assigned at Not on file Legal Sex Male 3:28 AM CASE PLANNER Gender Identity Not on file Sexual Orientation Not on file documented as of this encounter Plan of Treatment Upcoming Encounters Date Type Department Care Team (Late st Contact Info) Description 11/28/2024 3:00 PM CDT Office Visit [facility] Primary Care [place] [id number] [place] [address] [place] [address] Velia Gray FNP [address] [facility] [place] [address] documented as of this encounter Visit Diagnoses Diagnosis Unspecified hearing loss- Primary documented in this encounter Care Teams Director Of Consumer Marketing Relationship Specialty [place] [address] [facility] [place] [phone] PCP - General Family Practice 07/07/15 documented as of this encounter
--- OUTSIDE RECORDS SUMMARY | 2024-11-12 11:08 | XMS_ITS | Clinical Summary ---
Author Organization [facility] Address [address] [place] [address] Care Team Providers Care Director State Pharmacy Name Role Phone Marciano Santana MD Primary Care Provi [facility] Source Comments [facility],non-owned Affiliates and Associated Physician Practices is amultiple site organization consisting of ambulatory clinics and hospital sitesin [place], [place], [place] and [place]. This disclosure is being madepursuant to the Care Everywhere program and may not contain all information available regarding this patient. 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 Gender Identity Not on file Sexual Orientation [...] patient's age to complete this topic Insurance [facility] Member Subscriber Plan / Payer (Ef fective for All Dates) Name:Munir Hanna Relation to Subscriber:Child Name:NICHOLAS HANNA Subscriber ID:Not on file (Home) Address: [address] [place] [address] Payer ID:[id number] (NAIC) Type:O Address: [facility] [id number] [facility] Care Teams Director State Pharmacy Relationship Specialty Start Date End Date Marciano Santana MD [address] [facility] [address] [place] [address] PCP - General 10/30/09
--- OUTSIDE RECORDS SUMMARY | 2024-11-12 11:08 | XMS_ITS | Encounter Summary ---
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 Gender Identity Not on file Sexual Orientation Not on file documented as of this encounter Plan of Treatment Upcoming Encounters Date Type Department Care Team (Late st Contact Info) Description 11/28/2024 3:00 PM CDT Office Visit [facility] Primary Care [place] [address] [place] [address] [place] [address] Velia Gray FNP [address] [place] [address] documented as of this encounter Visit Diagnoses Not on filedocumented in this encounter Care Teams Funeral Car Chauffeur Relationship Specialty [place] [address] [facility] [place] [phone] PCP - General Family Practice 07/07/15 documented as of this encounter
--- OUTSIDE RECORDS SUMMARY | 2024-11-12 11:08 | XMS_ITS | Encounter Summary ---
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 Gender Identity Not on file Sexual Orientation Not on file documented as of this encounter Plan of Treatment Upcoming Encounters Date Type Department Care Team (Late st Contact Info) Description 11/28/2024 3:00 PM CDT Office Visit [facility] Primary Care [place] [id number] [place] [address] [place] [address] Velia Gray FNP [address] [facility] [place] [address] documented as of this encounter Visit Diagnoses Not on filedocumented in this encounter Care Teams Supply Room Clerk Relationship Specialty [place] [address] [facility] [place] [phone] PCP - General Family Practice 07/07/15 documented as of this encounter
--- OUTSIDE RECORDS SUMMARY | 2024-11-12 11:08 | XMS_ITS | Clinical Summary ---
Author Organization [facility] Address 1 [place] [address] Care Team Providers Care Net Washer Name Role Phone Kyle Verma MD Primary [...] Description 11/12/2024 8:30 AM CDT Office Visit [facility] Con[facility]ient [facility] at [address] [address] Wil Magaña, YOGESH Abdominal pain, vomiting, and diarrhea (Primary Dx); Generalized abdominal tenderness without rebound tenderness 10/17/2024 Results Follow-Up [facility] Care at [place] [address] [address] [place] [place] [address] Sanjuana Rothman, YOGESH Throat culture Throat 10/17/2024 Telephone [facility] at [place] [address] [phone] Betsy Romo MA 10/16/2024 10:28 AM CDT - 10/16/2024 11:59 PM CDT Hospital Encounter [address] [address] Sore throat Discharge Disposition: Discharge to home or self care 10/16/2024 10:00 AM CDT Office Visit [facility] at [place] [address] [address] [place] [address] [address] Sanjuana Rothman, YOGESH Sore throat (Primary Dx); Cough, unspecified type; Acute suppurative otitis media of left ear with spontaneous rupture of tympanic membrane, recurrence not specified 08/16/2024 9:00 AM CDT Office Visit [facility] [place] [address] [place] [address] Rachana Baker NP Nausea vomiting and [...] growth of pathogens. Comment:Testing performed by : [facility], [address] [place]., [address] Throat 10/16/2024 10:2 8 AM CDT 10/16/2024 4:12 PM CDT Narrative ZACHERY Bowie 10/17/2024 12:47 PM CDT Testing performed by [facility] Microbiology Laboratory ([phone]). Sanjuana Rothman NP LAB MICROBIOLOGY - GENERAL ORDERABLES Final Result ZACHERY [address] [address] [place] [address] * POC Influenza A/B, COVID-19 [...] Result [facility] [address] [place] [address], [facility] * POCT rapid strep A (10/16/2024 10:23 AM CDT) Rapid Strep A, POC Negative Negative Swab 10/16/2024 10:2 3 AM CDT Sanjuana Rothman NP POINT OF CARE TEST ORDERABL ES Final Result from Last 3 Months Insurance [facility] Care Teams Net Washer Relationship Specialty [place] [address] [place] [address] PCP - General 11/28/18
--- OUTSIDE RECORDS SUMMARY | 2024-11-12 11:08 | XMS_ITS | Encounter Summary ---
Author Organization 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 Gender Identity Not on file Sexual Orientation Not on file documented as of this encounter Plan of Treatment Upcoming Encounters Date Type Department Care Team (Late st Contact Info) Description 11/28/2024 3:00 PM CDT Office Visit [facility] Primary Care [place] [address] [place] [address] [place] [address] Velia Gray FNP [address] [place] [address] documented as of this encounter Visit Diagnoses Not on filedocumented in this encounter Care Teams Lens Fabricating Machine Tender Relationship Specialty [place] [address] [facility] [place] [phone] PCP - General Family Practice 07/07/15 documented as of this encounter
--- OUTSIDE RECORDS SUMMARY | 2024-11-12 11:08 | XMS_ITS | Encounter Summary ---
Author Organization Address 5 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 Gender Identity Not on file Sexual Orientation Not on file documented as of this encounter Plan of Treatment Upcoming Encounters Date Type Department Care Team (Late st Contact Info) Description 11/28/2024 3:00 PM CDT Office Visit [facility] Primary Care [place] [address] [place] [address] [place] [address] Velia Gray FNP [address] [place] [address] documented as of this encounter Visit Diagnoses Not on filedocumented in this encounter Care Teams High School Biology Teacher Relationship Specialty [place] [address] [facility] [place] [phone] PCP - General Family Practice 07/07/15 documented as of this encounter
--- OUTSIDE RECORDS SUMMARY | 2024-11-12 11:08 | XMS_ITS | Encounter Summary ---
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 Gender Identity Not on file Sexual Orientation Not on file documented as of this encounter Plan of Treatment Upcoming Encounters Date Type Department Care Team (Late st Contact Info) Description 11/28/2024 3:00 PM CDT Office Visit [facility] Primary Care [place] [phone] [place] [address] [place] [address] Velia Gray FNP [address] [facility] [address] documented as of this encounter Visit Diagnoses Not on filedocumented in this encounter Care Teams Operation Specialist Relationship Specialty [place] [address] [facility] [place] [phone] PCP - General Family Practice 07/07/15 documented as of this encounter
--- OUTSIDE RECORDS SUMMARY | 2024-11-12 11:08 | XMS_ITS | Encounter Summary ---
Author Organization [facility] Address [address] [place] [address] Care Team Providers Care Drill Bit Sharpener Name Role Phone Kyle Cole MD Primary Care Provider [phone] Encounter Details Date Type Department Care Team (Late Contact Info) Description 01/21/2007 Outpatient Historical [facility] Sant[facility] [address] [facility] 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 Gender Identity Not on file Sexual Orientation Not on file documented as of this encounter Plan of Treatment Upcoming Encounters Date Type Department Care Team (Late Contact Info) Description 11/28/2024 3:00 PM CDT Office Visit [facility] Primary Care [place] [phone] [place] [address] Velia Gray FNP [address] [place] [address] documented as of this encounter Visit Diagnoses Not on filedocumented in this encounter Care Teams Drill Bit Sharpener Relationship Specialty [place] [address] [facility] [place] [phone] PCP - General Family Practice 07/07/15 documented as of this encounter
--- OUTSIDE RECORDS SUMMARY | 2024-11-12 11:08 | XMS_ITS | Encounter Summary ---
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 Male 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 Gender Identity Not on file Sexual Orientation Not on file documented as of this encounter Plan of Treatment Upcoming Encounters Date Type Department Care Team (Late st Contact Info) Description 11/28/2024 3:00 PM CDT Office Visit [facility] Primary [facility] [place] [id number] [place] [address] [place] [address] Velia Gray FNP [address] [facility] [place] [address] documented as of this encounter Visit Diagnoses Not on filedocumented in this encounter Care Teams Proposal Review Analyst Relationship Specialty [place] [address] [facility] [place] [phone] PCP - General Family Practice 07/07/15 documented as of this encounter
--- OUTSIDE RECORDS SUMMARY | 2024-11-12 11:08 | XMS_ITS | Encounter Summary ---
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 Gender Identity Not on file Sexual Orientation Not on file documented as of this encounter Plan of Treatment Upcoming Encounters Date Type Department Care Team (Late st Contact Info) Description 11/28/2024 3:00 PM CDT Office Visit [facility] Primary [facility] [place] [id number] [place] [address] [place] [address] Velia Gray FNP [address] [facility] [place] [address] documented as of this encounter Visit Diagnoses Not on filedocumented in this encounter Care Teams Stone Carver Relationship Specialty [place] [address] [facility] [place] [phone] PCP - General Family Practice 07/07/15 documented as of this encounter
--- OUTSIDE RECORDS SUMMARY | 2024-11-12 11:08 | XMS_ITS | Encounter Summary ---
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 Gender Identity Not on file Sexual Orientation Not on file documented as of this encounter Plan of Treatment Upcoming Encounters Date Type Department Care Team (Late st Contact Info) Description 11/28/2024 3:00 PM CDT Office Visit [facility] Primary [facility] [place] [id number] [place] [address] [place] [address] Velia Gray FNP [address] [facility] [place] [address] documented as of this encounter Visit Diagnoses Not on filedocumented in this encounter Care Teams Field Evidence Technician Relationship Specialty [place] [address] [facility] [place] [phone] PCP - General Family Practice 07/07/15 documented as of this encounter
--- OUTSIDE RECORDS SUMMARY | 2024-11-12 11:08 | XMS_ITS | Clinical Summary ---
Author Organization [facility] Address [address] [place] [address] Phone Care Team Providers Care Wallpaper Installer Name Role Phone Kyle Cole MD Primary Care Provider [phone] Oumar Parker PAC Unavailable [phone] Medications valACYclovir (VALTREX) 500 MG Tablet Take [...] naloxone HCl (Narcan) 4 MG/0.1ML Liquid 1 [place] by Nasal route as needed for Opioid [...] Pf, 3 0 Mcg/0.3 Ml Dose, Wood-sucrose (Cognection pang top) 06/15/2020 DTAP VACCINE 12/07/1999, 9,11/30/1997,05/28 [...] this topic Medical Devices Implanted Type Area Sash Maker Device Identifier Shelf Expiration Date Model / Serial / Lot Screw Bone 2.4mm 20mm Ss T8 Lock Chilo Solis Ns - [id number] Implanted:Qty: 1 on 09/06/2023 by Pola Santos DO at [facility] IMPLANT Left: Wrist SHELBIE GAMING 02.210.120 / 02.210.120 / 02.210.120 Screw Bone 2.4mm 18mm Ss T8 Lock Vangl Strdr Ns - [id number] Implanted:Qty: 1 on 09/06/2023 by Pola Santos DO at [facility] IMPLANT Left: Wrist SHELBIE GAMING 02.210.118 / 02.210.118 / 02.210.118 Screw Bone 2.7mm 16mm Lcp Ss T8 Cortex Strdr Slftp Ns Mdlr Mini Frag Sys - [id number] Implanted:Qty: 2 on 09/06/2023 by Pola Santos DO at [facility] IMPLANT Left: Wrist SHELBIE GAMING 202.876 / 202.876 / 202.876 2 Hole Left Plate Implanted:Qty: 1 on 09/06/2023 by Pola Santos DO at [facility] Left: Wrist 02.111.621 / 02.111.621 / 02.111.621 2.4 Va Locking Screw 22mm Implanted:Qty: 2 on 09/06/2023 by Pola Santos DO at [facility] Left: Wrist 02.210.122 / 02.210.122 / 02.210.122 Explanted Type Area Sash Maker Device Identifier Shelf Expiration Date Model / Serial / Lot 2.4 Cortex Screw 26mm Explanted:Qty: 1 on 09/06/2023 at [facility] Left: Wrist 201.776 / 201.776 / 201.776 Insurance [facility] Care Teams Wallpaper Installer Relationship Specialty Start Date End Date Kyle Cole MD [address] [place] [address] PCP - General Emergency Medicine 12/15/18 Oumar Parker PAC [address] [place] [address] Physician Mimeograph Operator Physician Mimeograph Operator 09/05/23
--- OUTSIDE RECORDS SUMMARY | 2024-11-12 11:08 | XMS_ITS | Encounter Summary ---
Author Organization [facility] Address 5 [facility] Attn: [place] [address] Care Team Providers Care Network Control Operators Supervisor Name Role Phone Kyle Cole MD Primary Care Provider [phone] Encounter Details Date Type Department Care Team (Late st Contact Info) Description 12/22/2003 Outpatient Historical AttMarciano marshall MD [address] [address] Social History Tobacco Use Types Packs/Day Years Used Date Smoking Tobacco: Never Assessed Sex and Gender Information Value Date Recorded Sex Assigned at Not on file 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 Gender Identity Not on file Sexual Orientation Not on file documented as of this encounter Plan of Treatment Upcoming Encounters Date Type Department Care Team (Late st Contact Info) Description 11/28/2024 3:00 PM CDT Office Visit [facility] Primary [place] [phone] [place] [address] [place] [address] Velia Gray FNP [address] [facility] [place] [address] documented as of this encounter Visit Diagnoses Not on filedocumented in this encounter Care Teams Network Control Operators Supervisor Relationship Specialty [place] [address] [facility] [place] [phone] PCP - General Family Practice 07/07/15 documented as of this encounter
--- OUTSIDE RECORDS SUMMARY | 2024-11-12 11:08 | XMS_ITS | Encounter Summary ---
Author Organization [facility] Address 5 [facility] Attn: Epic Prelude ADT [place] [address] Care Team Providers Care Sports Activities Foul Judge Name Role Phone Kyle Cole MD Primary Care Provider [phone] Encounter Details Date Type Department Care Team (Late st Contact Info) Description 04/23/1998 Outpatient Historical Marija Colvin MD [address] [place] [address] Social History Tobacco Use Types Packs/Day Years Used Date Smoking Tobacco: Never Assessed Sex and Gender Information Value Date Recorded Sex Assigned at Not on file Legal Sex Male 3:28 AM SEXOLOGIST Gender Identity Not on file Sexual Orientation Not on file documented as of this encounter Plan of Treatment Upcoming Encounters Date Type Department Care Team (Late st Contact Info) Description 11/28/2024 3:00 PM CDT Office Visit [facility] Primary [place] [id number] [place] [address] [place] [address] Velia Gray FNP [address] [facility] [place] [address] documented as of this encounter Visit Diagnoses Not on filedocumented in this encounter Care Teams Sports Activities Foul Judge Relationship Specialty [place] [address] [facility] [place] [address] PCP - General Family Practice 07/07/15 documented as of this encounter
--- OUTSIDE RECORDS SUMMARY | 2024-11-12 11:08 | XMS_ITS | Encounter Summary ---
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 [address] documented as of this encounter Visit Diagnoses Not on filedocumented in this encounter Care Teams Bark Spudder Relationship Specialty [place] [address] [facility] [place] [address] PCP - General Family Practice 07/07/15 documented as of this encounter
--- OUTSIDE RECORDS SUMMARY | 2024-11-12 11:08 | XMS_ITS | Encounter Summary ---
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 [place] [address] PCP - General Family Practice 07/07/15 documented as of this encounter
--- OUTSIDE RECORDS SUMMARY | 2024-11-12 11:08 | XMS_ITS | Encounter Summary ---
Author Organization [facility] Address 5 [facility] Attn: [place] [address] Care Team Providers Care Welfare Case Worker Name Role Phone Kyle Cole MD Primary Care Provider [phone] Encounter Details Date Type Department Care Team (Late st Contact Info) Description 05/15/2006 Outpatient Historical AttMarciano marshall MD [address] [address] Social History Tobacco Use Types Packs/Day Years Used Date Smoking Tobacco: Never Assessed Sex and Gender Information Value Date Recorded Sex Assigned at Not on file Legal Sex Male 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 Gender Identity Not on file Sexual Orientation Not on file documented as of this encounter Plan of Treatment Upcoming Encounters Date Type Department Care Team (Late st Contact Info) Description 11/28/2024 3:00 PM CDT Office Visit [facility] Primary Care [place] [phone] [place] [address] [place] [address] Velia Gray FNP [address] [facility] [place] [address] documented as of this encounter Visit Diagnoses Not on filedocumented in this encounter Care Teams Welfare Case Worker Relationship Specialty [place] [address] [facility] [place] [phone] PCP - General Family Practice 07/07/15 documented as of this encounter
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
--- OUTSIDE RECORDS SUMMARY | 2024-11-12 11:08 | XMS_ITS | Encounter Summary ---
Author Organization [facility] Address 5 [facility] Attn: [place] [address] Care Team Providers Care College Counselor Name Role Phone Kyel Cole MD Primary Care Provider [phone] Encounter Details Date Type Department Care Team (Late st Contact Info) Description 06/07/2006 Outpatient Historical AttMarciano marshall MD [address] [address] Social History Tobacco Use Types Packs/Day Years Used Date Smoking Tobacco: Never Assessed Sex and Gender Information Value Date Recorded Sex Assigned at Not on file Legal Sex Male 3:28 AM MANAGER FILE Gender Identity Not on file Sexual Orientation Not on file documented as of this encounter Plan of Treatment Upcoming Encounters Date Type Department Care Team (Late st Contact Info) Description 11/28/2024 3:00 PM CDT Office Visit [facility] Primary [place] [address] [place] [address] [place] [address] Velia Gray FNP [address] [place] [address] documented as of this encounter Visit Diagnoses Not on filedocumented in this encounter Care Teams College Counselor Relationship Specialty [place] [address] [facility] [place] [phone] PCP - General Family Practice 07/07/15 documented as of this encounter
--- OUTSIDE RECORDS SUMMARY | 2024-11-12 11:08 | XMS_ITS | Encounter Summary ---
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 Gender Identity Not on file Sexual Orientation Not on file documented as of this encounter Plan of Treatment Upcoming Encounters Date Type Department Care Team (Late st Contact Info) Description 11/28/2024 3:00 PM CDT [facility] [place] [id number] [place] [address] [place] [address] Velia Gray FNP [address] [facility] [address] documented as of this encounter Visit Diagnoses Not on filedocumented in this encounter Care Teams Waste Collector Relationship Specialty [place] [address] [facility] [place] [address] PCP - General Family Practice 07/07/15 documented as of this encounter
--- OUTSIDE RECORDS SUMMARY | 2024-11-12 11:08 | XMS_ITS | Encounter Summary ---
Author Organization [facility] Address [address] [place] [address] Care Team Providers Care Zipper Measurer Name Role Phone Kyle Cole MD Primary Care Provider [phone] Encounter Details Date Type Department Care Team (Late st Contact Info) Description 06/06/2002 Outpatient Historical [facility] Irene Santana [facility] 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 Gender Identity Not on file Sexual Orientation Not on file documented as of this encounter Plan of Treatment Upcoming Encounters Date Type Department Care Team (Late st Contact Info) Description 11/28/2024 3:00 PM CDT Office Visit [facility] Primary Care [place] [id number] [place] [address] Velia Gray FNP [address] [place] [address] documented as of this encounter Visit Diagnoses Not on filedocumented in this encounter Care Teams Zipper Measurer Relationship Specialty [place] [address] [facility] [place] [phone] PCP - General Family Practice 07/07/15 documented as of this encounter
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
--- OUTSIDE RECORDS SUMMARY | 2024-11-12 11:08 | XMS_ITS | Encounter Summary ---
Author Organization [facility] Address [address] [place] [address] Care Team Providers Care Customer Care Professional Name Role Phone Kyle Cole MD Primary Care Provider [phone] Encounter Details Date Type Department Care Team (Late Contact Info) Description 04/09/2007 Outpatient Historical [facility] Irene Santana [facility] 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 Gender Identity Not on file Sexual Orientation Not on file documented as of this encounter Plan of Treatment Upcoming Encounters Date Type Department Care Team (Late Contact Info) Description 11/28/2024 3:00 PM CDT Office Visit [facility] Primary Care [address] [address] Velia Gray FNP [phone] [place] [address] documented as of this encounter Visit Diagnoses Not on filedocumented in this encounter Care Teams Customer Care Professional Relationship Specialty [place] [address] [facility] [place] [phone] PCP - General Family Practice 07/07/15 documented as of this encounter
--- OUTSIDE RECORDS SUMMARY | 2024-11-12 11:08 | XMS_ITS | Encounter Summary ---
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 [place] [phone] PCP - General Family Practice 07/07/15 documented as of this encounter
--- OUTSIDE RECORDS SUMMARY | 2024-11-12 11:08 | XMS_ITS | Encounter Summary ---
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 Gender Identity Not on file Sexual Orientation Not on file documented as of this encounter Plan of Treatment Upcoming Encounters Date Type Department Care Team (Late st Contact Info) Description 11/28/2024 3:00 PM CDT Office Visit [facility] Primary Care [place] [id number] [place] [address] [place] [address] Velia Gray FNP [address] [facility] [place] [address] documented as of this encounter Visit Diagnoses Not on filedocumented in this encounter Care Teams Grand Scribe Relationship Specialty [place] [address] [facility] [place] [phone] PCP - General Family Practice 07/07/15 documented as of this encounter
--- OUTSIDE RECORDS SUMMARY | 2024-11-12 11:08 | XMS_ITS | Encounter Summary ---
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 Gender Identity Not on file Sexual Orientation Not on file documented as of this encounter Plan of Treatment Upcoming Encounters Date Type Department Care Team (Late st Contact Info) Description 11/28/2024 3:00 PM CDT Office Visit [facility] Primary Care [place] [phone] [place] [address] [place] [address] Velia Gray FNP [address] [facility] [place] [address] documented as of this encounter Visit Diagnoses Not on filedocumented in this encounter Care Teams Press Writer Relationship Specialty [place] [address] [facility] [place] [phone] PCP - General Family Practice 07/07/15 documented as of this encounter
--- OUTSIDE RECORDS SUMMARY | 2024-11-12 11:08 | XMS_ITS | Encounter Summary ---
Author Organization [facility] Address [address] [facility] Attn: [place] [address] Care Team Providers Care Cone Trucker Name Role Phone Kyle Cole MD Primary Care Provider [phone] Encounter Details Date Type Department Care Team (Late st Contact Info) Description 03/16/2004 Outpatient Historical AttMarciano marshall MD [address] [address] Social History Tobacco Use Types Packs/Day Years Used Date Smoking Tobacco: Never Assessed Sex and Gender Information Value Date Recorded Sex Assigned at Not on file Legal Sex Male 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 Gender Identity Not on file Sexual Orientation Not on file documented as of this encounter Plan of Treatment Upcoming Encounters Date Type Department Care Team (Late st Contact Info) Description 11/28/2024 3:00 PM CDT Office Visit [facility] Primary Care [place] [phone] [place] [address] [place] [address] Velia Gray FNP [address] [facility] [place] [address] documented as of this encounter Visit Diagnoses Not on filedocumented in this encounter Care Teams Cone Trucker Relationship Specialty [place] [address] [facility] [place] [phone] PCP - General Family Practice 07/07/15 documented as of this encounter
--- OUTSIDE RECORDS SUMMARY | 2024-11-12 11:08 | XMS_ITS | Encounter Summary ---
Author Organization [facility] Address [address] [place] [address] Care Team Providers Care Gift Shop Assistant Name Role Phone Kyle Cole MD Primary Care Provider Encounter Details Date Type Department Care Team (Late st Contact Info) Description 10/17/2024 Telephone [facility] [place] [address] [place] [phone] Betsy Romo MA Social History Tobacco Use [...] on filedocumented in this encounter Care Teams Gift Shop Assistant Relationship Specialty [place] [address] [place] [address] PCP - General 11/28/18 documented as of this encounter
--- OUTSIDE RECORDS SUMMARY | 2024-11-12 11:08 | XMS_ITS | Encounter Summary ---
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 Gender Identity Not on file Sexual Orientation Not on file documented as of this encounter Plan of Treatment Upcoming Encounters Date Type Department Care Team (Late st Contact Info) Description 11/28/2024 3:00 PM CDT Office Visit [facility] Primary Care [place] [phone] [place] [address] [place] [address] Velia Gray FNP [address] [place] [address] documented as of this encounter Visit Diagnoses Not on filedocumented in this encounter Care Teams Core Shaper Relationship Specialty [place] [address] [facility] [place] [phone] PCP - General Family Practice 07/07/15 documented as of this encounter
--- OUTSIDE RECORDS SUMMARY | 2024-11-12 11:08 | XMS_ITS | Encounter Summary ---
Author Organization [facility] Address 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 Gender Identity Not on file Sexual Orientation Not on file documented as of this encounter Plan of Treatment Upcoming Encounters Date Type Department Care Team (Late Contact Info) Description 11/28/2024 3:00 PM CDT Office Visit [facility] Primary Care [place] [phone] [place] [address] [place] [address] Velia Gray FNP [address] [facility] [place] [address] documented as of this encounter Visit Diagnoses Diagnosis Unspecified otitis media- Primary documented in this encounter Care Teams Director Of Primary Care Relationship Specialty [place] [address] [place] [phone] PCP - General Family Practice 07/07/15 documented as of this encounter
--- OUTSIDE RECORDS SUMMARY | 2024-11-12 11:08 | XMS_ITS | Encounter Summary ---
Author Organization [facility] Address [address] [place] [address] Care Team Providers Care Aerophysics Engineer Name Role Phone Kyle Cole MD Primary Care Provider [phone] Encounter Details Date Type Department Care Team (Late st Contact Info) Description 05/29/2000 Outpatient Historical [facility] Dru Lawler MD [address] 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 Gender Identity Not on file Sexual Orientation Not on file documented as of this encounter Plan of Treatment Upcoming Encounters Date Type Department Care Team (Late st Contact Info) Description 11/28/2024 3:00 PM CDT Office Visit [facility] Primary Care [place] [phone] [place] [address] [place] [address] Velia Gray FNP [address] [place] [address] documented as of this encounter Visit Diagnoses Diagnosis Perforation of tympanic membrane, unspecified- Primary documented in this encounter Care Teams Aerophysics Engineer Relationship Specialty [place] [address] [facility] [place] [phone] PCP - General Family Practice 07/07/15 documented as of this encounter
--- OUTSIDE RECORDS SUMMARY | 2024-11-12 11:08 | XMS_ITS | Encounter Summary ---
Author Organization [facility] Address [address] [place] [address] Care Team Providers Care Manufacturing Lab Technician Name Role Phone Kyle Cole MD Primary Care Provider Encounter Details Date Type Department Care Team (Late st Contact Info) Description 10/17/2024 Results Follow-Up [facility] Convenient Care at [address] [place] [phone] Sanjuana Rothman, YOGESH [address] [facility] [facility] [place] [address] Throat culture Throat Social History Tobacco Use [...] on filedocumented in this encounter Care Teams Manufacturing Lab Technician Relationship Specialty [place] [address] [place] [address] PCP - General 11/28/18 documented as of this encounter
--- OUTSIDE RECORDS SUMMARY | 2024-11-12 11:08 | XMS_ITS | Clinical Summary ---
Author Organization [facility] Administrative Offices Address [address] [place] [address] Care Team Providers Care Systems Mechanic Name Role Phone Kyle Verma MD Primary Care Provider [phone] Allergies No known active allergies Medications ibuprofen [...] 02/21/2024 Assessment & Plan (02/21/2024 2:22 PM STRIP TANK TENDER): Uncontrolled. PT will to start naltrexone, discussed [...] EGD. Assessment & Plan (03/19/2019 2:26 PM STRIP TANK TENDER): Suboptimal control. Start PPI, GERD diet encouraged, [...] cessation. Assessment & Plan (03/19/2019 2:29 PM STRIP TANK TENDER): Uncontrolled. Was drinking 1/5 liquor/day. ER visit 02/26/2019. Encouraged complete cessation, he says has cut down;ref to Psychiatry. Mood swings 03/19/2019 Assessment & Plan (03/19/2019 2:26 PM STRIP TANK TENDER): Suboptimal control. Long discussion - no active [...] request Assessment & Plan (03/19/2019 2:28 PM STRIP TANK TENDER): Stable. Refilled meds Assessment & Plan (01/30/2019 1:07 PM STRIP TANK TENDER): Stable and Controlled. Current medication regimen affective, [...] 02/01/2018 Assessment & Plan (02/01/2018 2:02 PM STRIP TANK TENDER): Suboptimal control. Daily, bilateral, can be severe. Symptom diary. Non-focal neuro exam. Check basic labs. Says nothing otc works, but not taking anything lately - discussed trial tylenol, etc. Sounds like tension type. Acute low back pain without sciatica 03/05/2017 Assessment & Plan (03/05/2017 11:51 AM STRIP TANK TENDER): Suboptimal control. No red flags. Several weeks. [...] propranolol. Assessment & Plan (02/21/2024 2:20 PM STRIP TANK TENDER): Uncontrolled. Long discussion with pt and girlfriend, [...] care. Assessment & Plan (03/19/2019 2:25 PM STRIP TANK TENDER): Status: Major Depression Recurrent Severe Without psychotic symptoms - Suboptimal control Plan: Refer to Psychiatry. Long discussion - no active SI, emphasized importance of seeing psychiatry due to mood swings, concerns bipolar, alcohol abuse, ADD, anxiety. Hydroxyzine helps anxiety, continue To see Psychiatry. Has hotlines / resources in AVS, CRS #. Assessment & Plan (01/30/2019 1:06 PM STRIP TANK TENDER): Status: Major Depression Recurrent Moderate - Suboptimal control Plan: Refer to Psychiatry. and Follow up with PCP Assessment & Plan (07/31/2018 5:08 PM CDT): Status: Major Depression Recurrent Moderate - Suboptimal control Plan: Refer to Psychiatry. and referral to psychology. Assessment & Plan (02/01/2018 2:01 PM STRIP TANK TENDER): on seroquel, hydroxyzine; from Psychiatry Dr. Piyush Muñoz MD. Sees Therapist Madyson Germain. Discussed - defer meds to psychiatry, continue therapy, work on stress relief. Assessment & Plan (04/02/2017 9:29 AM STRIP TANK TENDER): Status: Major Depression Recurrent Moderate - Suboptimal control Plan: Refer to Psychiatry. Dose inc On prozac to 40mg, prn hydroxyzine. With cocaine use, recommended rehab and detox programs, list given. Ref Dr. Heard, addiction / Psychiatry as well. Assessment & Plan (03/05/2017 11:49 AM STRIP TANK TENDER): Status: Major Depression Recurrent Moderate - Stable [...] improvement. Assessment & Plan (03/19/2019 2:27 PM STRIP TANK TENDER): Suboptimal control. Long discussion - no active SI, emphasized importance of seeing psychiatry due to mood swings, concerns bipolar, alcohol abuse, ADD, anxiety. Referral Psychiatry ordered again. Hydroxyzine helps anxiety, continue To see Psychiatry. Has hotlines / resources in AVS, CRS #. Assessment & Plan (01/30/2019 1:07 PM STRIP TANK TENDER): Suboptimal control. Long discussion with patient regarding [...] anxiety. Assessment & Plan (02/01/2018 2:01 PM STRIP TANK TENDER): Suboptimal control. on seroquel, hydroxyzine; from Psychiatry Dr. Piyush Muñoz MD. Sees Therapist Madyson Germain. Work on stress relief Assessment & Plan (04/02/2017 9:32 AM STRIP TANK TENDER): Uncontrolled. Stress/sleep, prn hydroxyzine. prozac to 40mg. Cocaine worsening. Rehab/psych Assessment & Plan (03/05/2017 11:50 AM STRIP TANK TENDER): Uncontrolled. Start prozac, prn hydroxyzine. Ref Psychiatry. Stress/sleep tips. Assessment & Plan (11/01/2016 2:33 PM CDT): Suboptimal control. Discussed. Off effexor. Declines medications. Work on stress/sleep. Insomnia 07/07/2015 Assessment & Plan (12/07/2021 5:35 PM CDT): Suboptimal control. Restart prn hydroxyzine. No SI, if applicable discussed stress relief, sleep tips and/or see AVS. Assessment & Plan (03/19/2019 2:28 PM STRIP TANK TENDER): Suboptimal control. Prn hydroxyzine, melatonin, encouraged stress/sleep tips. Assessment & Plan (04/02/2017 9:31 AM STRIP TANK TENDER): Uncontrolled. Stress/sleep, prn hydroxyzine. Cocaine worsening. Rehab/psych Assessment & Plan (03/05/2017 11:49 AM STRIP TANK TENDER): Suboptimal control. Sleep/stress tips. Prn hydroxyzine. ADD (attention deficit disorder) Overview (02/25/2024): 07/07/2015 prev on adderall; abused? Didn't like how he felt on it. 03/05/2017 took adderall 10mg briefly fall 2016; holding off on refills.03/19/2019 defer any medications to Psychiatry 02/21/24: ABUSING ADDERALL / DR. VERMA's OFFICE NO LONGER FILLING> Assessment & Plan (02/21/2024 2:20 PM STRIP TANK TENDER): Pt off adderall, will make PCP aware [...] month. Assessment & Plan (03/19/2019 2:27 PM STRIP TANK TENDER): Suboptimal control. Long discussion - no active SI, emphasized importance of seeing psychiatry due to mood swings, concerns bipolar, alcohol abuse, ADD, anxiety. Referral Psychiatry ordered again. To see Psychiatry. Defer any medications to them. PCP not comfortable filling them here. Assessment & Plan (01/30/2019 1:08 PM STRIP TANK TENDER): Suboptimal control. Will defer to PCP for any potential medications. Patient has follow-up on 03/05/2019 Assessment & Plan (03/05/2017 11:51 AM STRIP TANK TENDER): Leroy. took adderall 10mg briefly fall 2016; [...] remission Assessment & Plan (01/30/2019 1:07 PM STRIP TANK TENDER): Stable, commended patient for abstaining from cocaine and other substances. Offered patient support. Assessment & Plan (02/01/2018 1:59 PM STRIP TANK TENDER): 02/01/2018 says remains sober months Assessment & Plan (04/02/2017 9:31 AM STRIP TANK TENDER): SUBSTANCE USE DISORDER DIAGNOSIS DOCUMENTATION Patient Denies [...] Data STL ABSTRACTION Provider, Abstract 09/11/2024 Refill [facility] [place] [address] [facility] [place] [phone] Molly Malagon, CAR DISPATCHER Alcoholism ([facility]) 08/26/2024 External Device Data STL ABSTRACTION [...] COVID-19 VACCINE - EMERGENCY USE AUTHORIZATION, MRNA, [id number](PF) 30 MCG/0.3 ML IM SUSP 05/16/2021,06/04/2020 HIB, [...] on file Legal Sex Male 3:28 AM STRIP TANK TENDER Gender Identity Not on file Sexual Orientation Not on file 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 Not on file Not on file Not on madi e Last Filed Vital Signs Vital Sign Reading Time Taken Comments Blood Pressure 128/78 03/26/2024 9:00 AM STRIP TANK TENDER Pulse 79 03/26/2024 9:00 AM STRIP TANK TENDER Temperature 36.2 C (97.1 F) 03/26/2024 9:00 AM STRIP TANK TENDER Respiratory Rate 18 03/26/2024 9:00 AM STRIP TANK TENDER Oxygen Saturation 98% 03/26/2024 9:00 AM STRIP TANK TENDER Inhaled Oxygen Concentration - - Weight 72.7 kg (160 lb 3.2 oz) 03/26/2024 9:00 A M STRIP TANK TENDER Height 170.2 cm (5' 7) 03/26/2024 9:00 AM STRIP TANK TENDER Body Mass Index 25.09 03/26/2024 9:00 AM STRIP TANK TENDER Plan of Treatment Upcoming Encounters Date Type Department Care Team (Late st Contact Info) Description 11/28/2024 3:00 PM CDT Office Visit [facility] [place] [id number] [place] [address] [place] [phone] Velia Gray FNP [address] [facility] [place] [phone] Health Maintenance Due [...] HPV VACCINES Completed 01/29/2015, 04/27, 06/19/[address] Care Teams Systems Mechanic Relationship Specialty [place] [address] [place] [phone] PCP - General Family Practice 07/07/15
--- OUTSIDE RECORDS SUMMARY | 2024-11-12 11:08 | XMS_ITS | Encounter Summary ---
Author Organization [facility] Address [address] [place] [address] Care Team Providers Care Nutrition Technician Name Role Phone Kyle Cole MD Primary Care Provider [phone] Encounter Details Date Type Department Care Team (Late st Contact Info) Description 04/09/2007 Outpatient Historical [facility] 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 Gender Identity Not on file Sexual Orientation Not on file documented as of this encounter Plan of Treatment Upcoming Encounters Date Type Department Care Team (Late Contact Info) Description 11/28/2024 3:00 PM CDT Office Visit [facility] Primary Care [address] [address] Velia Gray, ROD [id number] [place] [phone] documented as of this encounter Visit Diagnoses Not on filedocumented in this encounter Care Teams Nutrition Technician Relationship Specialty [place] [address] [place] [phone] PCP - General Family Practice 07/07/15 documented as of this encounter
--- OUTSIDE RECORDS SUMMARY | 2024-11-12 11:08 | XMS_ITS | Encounter Summary ---
Author Organization [facility] Address [address] [facility] Attn: [place] [address] Care Team Providers Care Lead Enterprise Architect Name Role Phone Kyle Cole MD Primary Care Provider [phone] Encounter Details Date Type Department Care Team (Late st Contact Info) Description 12/07/1999 Outpatient Historical Lisha Scales MD [address] [place] [phone] Social History Tobacco Use Types Packs/Day Years Used Date Smoking Tobacco: Never Assessed Sex and Gender Information Value Date Recorded Sex Assigned at Not on file Legal Sex Male 3:28 AM RECEPTION INTERVIEWER Gender Identity Not on file Sexual Orientation Not on file documented as of this encounter Plan of Treatment Upcoming Encounters Date Type Department Care Team (Late st Contact Info) Description 11/28/2024 3:00 PM CDT Office Visit [facility] Primary [facility] [place] [id number] [place] [address] [place] [address] Velia Gray FNP [address] [place] [address] documented as of this encounter Visit Diagnoses Not on filedocumented in this encounter Care Teams Lead Enterprise Architect Relationship Specialty [place] [address] [facility] [place] [phone] PCP - General Family Practice 07/07/15 documented as of this encounter
--- OUTSIDE RECORDS SUMMARY | 2024-11-12 11:08 | XMS_ITS | Encounter Summary ---
Author Organization 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 Gender Identity Not on file Sexual Orientation Not on file documented as of this encounter Plan of Treatment Upcoming Encounters Date Type Department Care Team (Late st Contact Info) Description 11/28/2024 3:00 PM CDT Office Visit [facility] [place] [id number] [place] [address] [place] [address] Velia Gray FNP [address] [place] [address] documented as of this encounter Visit Diagnoses Not on filedocumented in this encounter Care Teams Informatica Architect Relationship Specialty [place] [address] [facility] [place] [phone] PCP - General Family Practice 07/07/15 documented as of this encounter
[2024-11-12 11:12] VITALS: PULSE 67; RESP 18; O2SAT 100
== END 2024-11-12 11:14 | disposition home or self-care (01) ==
PROVIDERS: Emergency Medicine; Emergency Provider Nurse Practitioner Family
DX: K52.9 Noninfective gastroenteritis and colitis, unspecified (principal)
CPT/HCPCS: 36415; 74177; 80053; 81003; 85025; 96361; 96374; 96375; 99284; J2270; J2405; J7030; Q9967